=== PATIENT | male | born 1940 | race Caucasian/White ===

== ENCOUNTER → 2016-06-19 | Outpatient (CLI) | payer OTHER ==
[~2016-06-19] MED LIST: ALBU18002 INH; ALLO100T PO; AMLO2.5T PO; ASPI-435 PO; CETI10TA84 PO; FURO-85 PO; GABA-113 PO; LINA72CA PO; LISI-725 PO; PRT/20 PO; PTDOPS OP; SPRIN/30 INH; SYMIN160 INH; TRAM-10 PO; [UNRECOGNIZED DRUG - CODE] PO
[2016-06-19 13:22] LABS: BLOOD UREA NITROGEN 23 mg/dl (7-18); BUN/CREATININE RATIO 14.5 (10-20); CALCIUM 9.1 mg/dl (8.5-10.1); CARBON DIOXIDE 27 mmol/L (21-32); CHLORIDE 106 mmol/L (98-107); GLUCOSE 84 mg/dl (70-99); POTASSIUM 4.3 mmol/L (3.5-5.1); SODIUM 142 mmol/L (136-145); URIC ACID 8.7 mg/dl (2.6-7.2)
== END | disposition home or self-care (01) ==
LOC: C.LABMFLN 11:48
PROVIDERS: ATTEND Family Medicine
DX: I12.9 Hypertensive chronic kidney disease with stage 1 through stage 4 chronic kidney disease, or unspecified chronic kidney disease (principal); I50.9 Heart failure, unspecified; N18.3 Chronic kidney disease, stage 3 (moderate)

== ENCOUNTER → 2016-11-09 | Outpatient (CLI) | payer OTHER ==
[2016-11-09 13:25] LABS: BLOOD UREA NITROGEN 18 mg/dl (7-18); BUN/CREATININE RATIO 10.8 (10-20); CALCIUM 9.2 mg/dl (8.5-10.1); CARBON DIOXIDE 27 mmol/L (21-32); CHLORIDE 105 mmol/L (98-107); CHOLESTEROL 258 mg/dl (0-200); GLUCOSE 89 mg/dl (70-99); POTASSIUM 4.2 mmol/L (3.5-5.1); SODIUM 140 mmol/L (136-145); TRIGLYCERIDES 279 mg/dl (0-150); VERY LOW DENSITY LIPOPROT CALC 56 mg/dl
[2016-11-09 13:27] LABS: CHOLESTEROL/HDL RATIO 5.4; HDL CHOLESTEROL 48 mg/dl; LDL CHOLESTEROL CALCULATED 154 mg/dl; URIC ACID 11.3 mg/dl (2.6-7.2)
== END | disposition home or self-care (01) ==
LOC: C.LABMFLN 11:19
PROVIDERS: ATTEND Family Medicine
DX: Z00.00 Encounter for general adult medical examination without abnormal findings (principal); Z86.39 Personal history of other endocrine, nutritional and metabolic disease; I50.9 Heart failure, unspecified

== ENCOUNTER → 2016-11-23 | Outpatient (CLI) | payer OTHER | END | disposition home or self-care (01) | LOC: C.LABMFLN 14:13 | PROVIDERS: ATTEND Family Medicine | DX: E79.0 Hyperuricemia without signs of inflammatory arthritis and tophaceous disease (principal) ==

== ENCOUNTER → 2017-01-22 | Outpatient (CLI) | payer OTHER ==
--- NOTE | 2017-01-22 12:25 | DIAGNOSTIC IMAGING REPORT ---
L-SPINE MIN 4 VIEWS ROUTINE CLINICAL HISTORY: Low back pain. Lumbar canal stenosis. COMPARISON: None FINDINGS: There is straightening of the normal lumbar lordosis. No fracture or suspicious lesion is identified by radiography. Note is made of moderate to severe multilevel disc space narrowing ossified ptosis within the mid to lower lumbar spine. IMPRESSION: 1. No acute lumbar spine fracture or subluxation. 2. 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 Electronically signed by: Brian Bowen M.D. 01/22/2017 12:24 PM Dictated Date/Time: 01/22/2017 12:23 PM
[2017-01-22 12:52] LABS: BLOOD UREA NITROGEN 18 mg/dl (7-18); BUN/CREATININE RATIO 10.6 (10-20); CALCIUM 9.1 mg/dl (8.5-10.1); CARBON DIOXIDE 30 mmol/L (21-32); CHLORIDE 107 mmol/L (98-107); GLUCOSE 81 mg/dl (70-99); POTASSIUM 4.4 mmol/L (3.5-5.1); SODIUM 140 mmol/L (136-145)
[2017-01-22 12:53] LABS: PHOSPHORUS 2.8 mg/dl (2.5-4.9)
== END | disposition home or self-care (01) ==
LOC: C.RAD1850 11:22
PROVIDERS: ATTEND Nurse Practitioner Family
DX: N18.3 Chronic kidney disease, stage 3 (moderate) (principal); E79.0 Hyperuricemia without signs of inflammatory arthritis and tophaceous disease; M48.06 Spinal stenosis, lumbar region; M51.26 Other intervertebral disc displacement, lumbar region

== ENCOUNTER → 2017-02-26 | Outpatient (CLI) | payer OTHER ==
--- NOTE | 2017-02-26 11:56 | DIAGNOSTIC IMAGING REPORT ---
MRI OF THE LUMBAR SPINE WITHOUT IV CONTRAST CLINICAL HISTORY: Chronic low back pain with bilateral lower extremity radiculopathy. COMPARISON STUDY: Radiographs of the lumbar spine dated 01/22/2017. Abdominal CT dated 10/20/2014. TECHNIQUE: MRI of the lumbar spine is performed utilizing various T1 and T2-weighted sequences in the axial and sagittal planes. IV contrast was not administered for this examination. FINDINGS: Lumbar spine: Marrow signal intensity is heterogeneous. Vertebral body height and alignment are maintained throughout the lumbar spine. There is straightening of the lumbar lordosis. Anterior osteophytes are seen throughout. The transverse and spinous processes appear intact. No destructive bony lesion is seen. There is no spondylolysis. Advanced degenerative endplate sclerosis is present at L4-L5. Mild chronic degenerative endplate change is seen at the remaining lumbar levels. Minimal endplate edema is noted at L4-L5 and L5-S1. Intervertebral discs: Advanced degenerative disc desiccation and loss of height is seen at all lumbar levels. Spinal cord: The partially imaged spinal cord is normal in morphology and signal intensity. The conus medullaris terminates at the level of L1. The nerve roots of the cauda equina are normal in morphology. L1-L2: There is broad-based posterior disc bulge. This causes mild acquired compromise of the central canal. The minimum AP diameter measures 9 mm. There is bilateral subarticular stenosis. This likely impinges on the exiting right L1 nerve root. This also abuts the transiting right-sided nerve roots. L2-L3: There is posterior disc bulge with annular fissure. There is no significant acquired compromise of the central canal at this level. There is bilateral subarticular stenosis. The neural foramina are patent. L3-L4: There is broad-based posterior disc bulge with annular fissure. In conjunction with hypertrophy of the ligamentum flavum this causes moderate central canal stenosis with a minimum AP diameter of 5.5 mm. There is bilateral subarticular stenosis. This may impinge on the exiting right L3 nerve root. This also abuts the transiting nerve roots bilaterally. Facet arthropathy is of no consequence. The neural foramina are patent. L4-L5: There is a posterior disc osteophyte complex. In conjunction with hypertrophy of the ligamentum flavum there is moderate acquired compromise of the central canal at this level with a minimum AP diameter of 7 mm. There is bilateral subarticular stenosis with probable impingement on the exiting bilateral L4 nerve roots. Facet arthropathy causes mild bilateral neural foraminal stenosis. The disc bulge also likely abuts the transiting nerve roots. L5-S1: There is a small posterior disc bulge. There is no significant acquired compromise of the central canal at this level. There is bilateral subarticular stenosis with possible impingement on the exiting bilateral L5 nerve roots. Facet arthropathy causes mild right greater than left neural foraminal stenosis. Sacrum: The visualized sacrum is normal in morphology and signal intensity. Soft tissues: There is mild fatty atrophy of the paraspinous musculature. There is ectasia of the abdominal aorta. IMPRESSION: 1. Moderate to advanced multilevel lumbosacral spondylosis with multilevel acquired compromise of the central canal as detailed above. See discussion for detailed level by level analysis. 2. No acute bony abnormality is seen. 3. Advanced degenerative disc disease with multilevel degenerative endplate change. This is greatest at L4-L5. See above. Dictated: 02/26/2017 10:35 AM Transcribed: 02/26/2017 11:56 AM Tay Electronically signed by: Daniel Sanchez M.D. 02/26/2017 12:19 PM Dictated Date/Time: 02/26/2017 10:35 AM
== END | disposition home or self-care (01) ==
LOC: C.MRIBC 09:32
PROVIDERS: ATTEND Physician Assistant Medical
DX: M47.27 Other spondylosis with radiculopathy, lumbosacral region (principal); M51.36 Other intervertebral disc degeneration, lumbar region

== ENCOUNTER → 2017-05-11 | Outpatient (CLI) | payer OTHER ==
[~2017-05-11] MED LIST changes: +ALLO300T2 PO; +DOXA8TAB6 PO; -GABA-113 PO; +HYDR-3124 PO; +LISI40TA PO; -[UNRECOGNIZED DRUG - CODE] PO
== END | disposition home or self-care (01) ==
LOC: C.LABMFLN 08:49
PROVIDERS: ATTEND Physician Assistant
DX: E78.5 Hyperlipidemia, unspecified (principal)

== ENCOUNTER 2017-07-20 12:25 | Observation (INO) | payer OTHER ==
[~2017-07-20] VITALS: Ht 182.9 cm; Wt 95.2 kg
[~2017-07-20 12:25] MED LIST changes: -ALLO300T2 PO; -AMLO2.5T PO; -HYDR-3124 PO; -LISI40TA PO
[2017-07-20] MEDS ORDERED: NITROGLYCERIN 2% OINTMENT 30GM TUBE EXT ONE (12:45)
--- NOTE | 2017-07-20 12:50 | EMERGENCY ROOM VISIT NOTE ---
History Report prepared by Elizabeth: Dagoberto Zhang Under the Supervision of: Dr. Daniel Mckeon M.D. First contact with patient: 12:36 Chief Complaint: CARDIAC ASSESSMENT Stated Complaint: FEELS LIKE GOING TO PASS OUT, LOW BP History of Present Illness The patient is a 77 year old male who presents to the Emergency Room with complaints of worsening chest fullness that started yesterday. The patient states that there is no chest pain. He says that the fullness was very mild yesterday afternoon, but worsened last night, and has stayed constant since then. The patient states that it feels like there is water around his heart. He rates his fullness as "minimal" however. He notes that he has been a little short of breath. The patient says that he has had some left jaw pain, but denies any arm pain. He also denies any nausea or sweating. The patient adds that he has had a heart attack in the past, and is taking Aspirin daily. He notes no stenting or surgical history for his heart. He adds that he runs on the treadmill everyday, but did not today. He adds that he has a history of a partial lung resection due to an abscess. Source of History: patient Onset: Yesterday Position: chest Symptom Intensity: minimal, no pain Quality: other (fullness) Timing: worsening Associated Symptoms: + SOB, No diaphoresis, No nausea Note: Associated symptoms: Left jaw pain. Denies arm pain. Review of Systems See HPI for pertinent positives & negatives. A total of 10 systems reviewed and were otherwise negative. Past Medical & Surgical Medical Problems: (1) Back pain (2) COPD (chronic obstructive pulmonary disease) (3) Heart attack (4) HLD (hyperlipidemia) (5) HTN (hypertension) Family History Cancer Diabetes mellitus FH: heart disease Social History Smoking Status: Former Smoker Marital Status: single Housing Status: lives with family Occupation Status: employed Current/Historical Medications Scheduled Allopurinol (Zyloprim), 300 MG PO DAILY Amlodipine (Norvasc), 2.5 MG PO DAILY Aspirin (Aspirin 81), 81 MG PO DAILY Budesonide/Formoterol Fumarate (Symbicort 160/4.5 Inhaler ), 2 PUFFS INH BID Cetirizine (Zyrtec), 10 MG PO DAILY Doxazosin Mesylate (Doxazosin), 8 MG PO HS Hydroxyzine Hcl (Atarax), 25 MG PO HS Lisinopril (Zestril), 40 MG PO DAILY Olopatadine Hydrochloride (Pataday), 1 DROPS OP DAILY Pantoprazole (Protonix), 20 MG PO DAILY Tiotropium [place] (Spiriva Handihaler), 1 CAP INH DAILY Scheduled PRN Albuterol Sulfate (Proair Respiclick), 2 PUFF INH Q4 PRN for Shortness of Breath Tramadol (Ultram), 100 MG PO TID PRN for Pain Allergies Coded Allergies: No Known Allergies (Unverified , 07/20/17) Physical Exam Vital Signs Date Time Temp Pulse Resp B/P (MAP) Pulse Ox O2 Delivery O2 Flow Rate FiO2 07/20/17 14:10 88 20 151/107 99 Room Air 07/20/17 13:22 75 20 155/85 07/20/17 12:48 97 Room Air 07/20/17 12:46 81 07/20/17 12:32 36.5 79 18 175/71 97 Room Air Physical Exam GENERAL: Patient is in no acute distress. HEENT: No acute trauma, normocephalic atraumatic, mucous membranes moist, no nasal congestion, no scleral icterus. NECK: No stridor, no adenopathy, no meningismus, trachea is midline. LUNGS: Clear to auscultation bilaterally, no wheeze, no rhonchi, breath sounds equal. HEART: Without murmurs gallops or rubs, regular rate and rhythm. ABDOMEN: Soft, nontender, bowel sounds positive, no hernias, no peritonitis. EXTREMITIES: No cyanosis or edema, full range of motion of all the joints without pain or difficulty, no signs for acute trauma. NEUROLOGIC: Oriented x 3, no acute motor or sensory deficits, no focal weakness. SKIN: No rash, no jaundice, no diaphoresis. Medical Decision & Procedures ER Provider Diagnostic Interpretation: X-ray results as stated below per interpretation by me and the radiologist: CHEST ONE VIEW PORTABLE HISTORY: Atypical CHEST PAIN COMPARISON: None. FINDINGS: Emphysema. Mild interstitial thickening at the lung bases is likely due to vascular crowding. No focal lung consolidations to suggest pneumonia. No evidence for pulmonary edema. The heart is normal in size. Suture material within the right lung apex. Expansion of the right fifth intercostal space. Old, healed bilateral rib fractures. IMPRESSION: No acute process within the chest. Emphysema. Electronically signed by: Michael Toledo M.D. 07/20/2017 1:21 PM Dictated Date/Time: 07/20/2017 1:19 PM Laboratory Results 07/20/17 13:00 07/20/17 13:00 Test 07/20/17 13:00 Red Blood Count 5.04 M/uL (4.7-6.1) Mean Corpuscular Volume 92.9 fL (80-100) Mean Corpuscular Hemoglobin 31.5 pg (25-34) Mean Corpuscular Hemoglobin Concent 34.0 g/dl (32-36) RDW Standard Deviation 50.3 fL (36.4-46.3) RDW Coefficient of Variation 15.0 % (11.5-14.5) Mean Platelet Volume 10.6 fL (7.4-10.4) Prothrombin Time 10.7 SECONDS (9.0-12.0) Prothromb Time International Ratio 1.0 (0.9-1.1) Activated Partial Thromboplast Time 26.4 SECONDS (21.0-31.0) Partial Thromboplastin Ratio 1.0 Anion Gap 7.0 mmol/L (3-11) Est Creatinine Clear Calc Drug Dose 48.5 ml/min Estimated GFR () 48.5 Estimated GFR (Non- 41.8 BUN/Creatinine Ratio 12.3 (10-20) Calcium Level 8.6 mg/dl (8.5-10.1) Total Bilirubin 0.6 mg/dl (0.2-1) Aspartate Amino Transf (AST/SGOT) 15 U/L (15-37) Alanine Aminotransferase (ALT/SGPT) 25 U/L (12-78) Alkaline Phosphatase 88 U/L (45-117) Troponin I 0.027 ng/ml (0-0.045) Total Protein 6.8 gm/dl (6.4-8.2) Albumin 3.7 gm/dl (3.4-5.0) Globulin 3.1 gm/dl (2.5-4.0) Albumin/Globulin Ratio 1.2 (0.9-2) Laboratory results reviewed by me. Medications Administered Medications (Trade) Dose Ordered Sig/Mariam Route Start Time Stop Time Status Last Admin Dose Admin Nitroglycerin (Nitroglycerin 2% Oint) 0.5 inch NOW ONCE EXT 07/20/17 12:45 07/20/17 12:47 DC 07/20/17 13:22 0.5 INCH ECG Per My Interpretation Indication: chest pain Rate (beats per minute): 82 Rhythm: sinus rhythm (with some sinus arrhythmia) Findings: RBBB, other (nonspecific ST change, no ST elevation) ED Course 1242: The patient was evaluated in room B6. A complete history and physical exam was performed. 1245: Nitroglycerin 2% Oint 0.5 inch EXT. 1355: Upon reexamination the patient is feeling a lot better with the Nitro. The patient's symptoms are gone. I discussed results and treatment plan with the patient. He verbalizes agreement and understanding. The patient will be evaluated for further management. 1427: Discussed the patient's case with Dr. Britton FAIRBANKS field crop harvest worker. The patient will be evaluated for further management. Medical Decision Differential diagnosis includes but is not limited to CT, angina, cardiac ischemia, anemia, electrolyte imbalance, aortic dissection, PE. There is no leukocytosis or concerning anemia. No significant electrolyte abnormality or kidney failure. No coagulopathy. EKG shows a sinus rhythm with a right bundle branch block, no acute ischemia. Cardiac enzyme testing 1 is not consistent with acute cardiac injury. Chest film does not show pneumonia, mediastinal widening or CHF. The patient presents with substernal chest pain. He has had a previous CT. He received nitroglycerin paste and his symptoms have resolved. Given the pain described, given the radiation of discomfort to the left jaw, given the relief with nitroglycerin, a hospital stay was felt warranted. I spoke to the patient and case management. The on-call hospitalist was consulted. Medication Reconcilliation Current Medication List: was personally reviewed by me Blood Pressure Screening Patient's blood pressure: Elevated blood pressure Referred to hospitalist. Consults Time Called: 1421 Consulting Physician: Dr. Britton FAIRBANKS field crop harvest worker Returned Call: [phone] Discussed the patient's case with Dr. Britton FAIRBANKS field crop harvest worker. The patient will be evaluated for further management. Impression Primary Impression: Precordial chest pain Scribe Attestation The scribe's documentation has been prepared under my direction and personally reviewed by me in its entirety. I confirm that the note above accurately reflects all work, treatment, procedures, and medical decision making performed by me. Departure Information Dispostion Being Evaluated By Hospitalist Referrals Emanuel Castellon III, CRNP (PCP) Patient Instructions My [facility]
[2017-07-20 13:11] LABS: HEMATOCRIT 46.8 % (42-52); HEMOGLOBIN 15.9 g/dL (14.0-18.0); MEAN CELL VOLUME 92.9 fL (80-100); MEAN CORPUSCULAR HEMOGLOBIN 31.5 pg (25-34); MEAN PLATELET VOLUME 10.6 fL (7.4-10.4); PLATELET COUNT 224 K/uL (130-400); RED CELL DISTRIBUTION WIDTH SD 50.3 fL (36.4-46.3); WHITE BLOOD COUNT 9.52 K/uL (4.8-10.8)
--- NOTE | 2017-07-20 13:22 | DIAGNOSTIC IMAGING REPORT ---
CHEST ONE VIEW PORTABLE HISTORY: Atypical CHEST PAIN COMPARISON: None. FINDINGS: Emphysema. Mild interstitial thickening at the lung bases is likely due to vascular crowding. No focal lung consolidations to suggest pneumonia. No evidence for pulmonary edema. The heart is normal in size. Suture material within the right lung apex. Expansion of the right fifth intercostal space. Old, healed bilateral rib fractures. IMPRESSION: No acute process within the chest. Emphysema. Electronically signed by: Michael Toledo M.D. 07/20/2017 1:21 PM Dictated Date/Time: 07/20/2017 1:19 PM
[2017-07-20 13:23] LABS: PTT PATIENT 26.4 SECONDS (21.0-31.0)
[2017-07-20 13:26] LABS: ALBUMIN 3.7 gm/dl (3.4-5.0); CALCIUM 8.6 mg/dl (8.5-10.1); CREATININE 1.59 mg/dl (0.60-1.40); POTASSIUM 4.7 mmol/L (3.5-5.1)
[2017-07-20 13:31] LABS: TOTAL PROTEIN 6.8 gm/dl (6.4-8.2)
[2017-07-20] MEDS ORDERED: LISI40TA PO (14:34)
[2017-07-20] MEDS ORDERED: ALLO300T2 PO (14:34)
[2017-07-20] MEDS ORDERED: AMLO2.5T PO (14:34)
[2017-07-20] MEDS ORDERED: HYDR-3124 PO (14:34)
[2017-07-20] MEDS ORDERED: MAGNESIUM HYDROXIDE SUSP 30 ML UDC PO PRN (15:30)
[2017-07-20] MEDS ORDERED: POLYETHYLENE (MIRALAX) 17 GM PACK PO PRN (15:30)
[2017-07-20] MEDS ORDERED: MoRPHine SULFATE 2 MG/ML CARP IV PRN (15:30)
[2017-07-20] MEDS ORDERED: TRAMADOL HCL 50 MG TAB PO PRN (15:30)
[2017-07-20] MEDS ORDERED: HydrALAZINE HCL 20 MG/ML VIAL IV. PRN (15:30)
[2017-07-20] MEDS ORDERED: ALBUTEROL HFA 8 GM INHALER INH PRN (15:30)
[2017-07-20] MEDS ORDERED: ALUMINUM/MAGNESIUM/SIMETH (MAALOX MAX) 30 ML UDC PO PRN (15:30)
[2017-07-20] MEDS ORDERED: ACETAMINOPHEN 325 MG TAB PO PRN (15:30)
[2017-07-20] MEDS ORDERED: ONDANSETRON INJ 2 MG/ML 2 ML VIAL IV PRN (15:30)
--- NOTE | 2017-07-20 15:44 | History and Physical ---
History & Physical Date & Time of Service: Jul 20, 2017 at 15:27 Chief Complaint: Feels Like Going To Pass Out, Low Bp Primary Care Physician: Raul Oscar M.D. History of Present Illness Source: patient, clinic records, hospital records Patient is a pleasant 77 y/o male, with PMHx of CAD s/p MS in 2008, ischemic cardiomyopathy w/ EF of 45-50%, systolic CHF, paroxysmal a.fib, HLD, HTN, COPD, CKD stage III, gout, OA, and GERD, who presented to the ED because of centralized chest pressure. Pain occurred this AM while at rest. It did not radiate. He notes mild associated shortness of breath. He did not take anything to alleviate pain. However, in ED he was given Nitro ointment with resolution is discomfort. He has been taking all of his medications as prescribed. He follows w/ Dr. Flores for cardiology. He normally walks on the treadmill daily- he did yesterday with no issues, he did not today due to chest discomfort. Patient denies any fever, chills, sweats, lightheadedness, dizziness, vision changes, palpitations, edema, wheezing, cough, abdominal pain, nausea, vomiting , diarrhea, urinary symptoms, melena, numbness/tingling, weakness, muscle/joint pain, anxiety/depression, active bleeding, or new skin discoloration/changes. Past Medical/Surgical History CAD s/p MS in 2008- INTOLERANT TO B-BLOCKERS ischemic cardiomyopathy w/ EF of 45-50% systolic CHF paroxysmal a.fib- REFUSES ANTICOAGULATION HLD- INTOLERANT TO STATINS HTN COPD CKD stage III gout OA GERD s/p R partial lobectomy due to abscess Family History Cancer Diabetes mellitus FH: heart disease Social History Smoking Status: Former Smoker Smokeless Tobacco Use: Yes Marital Status: single Housing status: lives with significant other Occupational Status: employed Allergies Coded Allergies: No Known Allergies (Unverified , 07/20/17) Home Medications Scheduled Allopurinol (Zyloprim), 300 MG PO DAILY Amlodipine (Norvasc), 2.5 MG PO DAILY Aspirin (Aspirin 81), 81 MG PO DAILY Budesonide/Formoterol Fumarate (Symbicort 160/4.5 Inhaler ), 2 PUFFS INH BID Cetirizine (Zyrtec), 10 MG PO DAILY Doxazosin Mesylate (Doxazosin), 8 MG PO HS Hydroxyzine Hcl (Atarax), 25 MG PO HS Lisinopril (Zestril), 40 MG PO DAILY Olopatadine Hydrochloride (Pataday), 1 DROPS OP DAILY Pantoprazole (Protonix), 20 MG PO DAILY Tiotropium [place] (Spiriva Handihaler), 1 CAP INH DAILY Scheduled PRN Albuterol Sulfate (Proair Respiclick), 2 PUFF INH Q4 PRN for Shortness of Breath Tramadol (Ultram), 100 MG PO TID PRN for Pain Physical Exam Vital Signs Date Time Temp Pulse Resp B/P (MAP) Pulse Ox O2 Delivery O2 Flow Rate FiO2 07/20/17 14:10 88 20 151/107 99 Room Air 07/20/17 13:22 75 20 155/85 07/20/17 12:48 97 Room Air 07/20/17 12:46 81 07/20/17 12:32 36.5 79 18 175/71 97 Room Air General Appearance: no apparent distress Head: normocephalic, atraumatic Eyes: normal inspection, PERRL ENT: hearing grossly normal Neck: supple, no JVD Respiratory/Chest: lungs clear, no respiratory distress, no accessory muscle use Cardiovascular: regular rate, rhythm Abdomen/GI: normal bowel sounds, non tender, soft Back: normal inspection, + pertinent finding (healed scar to R side mid back ) Extremities/Musculoskelatal: no calf tenderness, no pedal edema Neurologic/Psych: alert, normal mood/affect, oriented x 3 Skin: normal color, warm/dry, no rash Diagnostics Laboratory Results Results Past 24 Hours Test 07/20/17 13:00 Range/Units White Blood Count 9.52 4.8-10.8 K/uL Red Blood Count 5.04 4.7-6.1 M/uL Hemoglobin 15.9 14.0-18.0 g/dL Hematocrit 46.8 42-52 % Mean Corpuscular Volume 92.9 80-100 fL Mean Corpuscular Hemoglobin 31.5 25-34 pg Mean Corpuscular Hemoglobin Concent 34.0 32-36 g/dl RDW Standard Deviation 50.3 36.4-46.3 fL RDW Coefficient of Variation 15.0 11.5-14.5 % Platelet Count 224 130-400 K/uL Mean Platelet Volume 10.6 7.4-10.4 fL Prothrombin Time 10.7 9.0-12.0 SECONDS Prothromb Time International Ratio 1.0 0.9-1.1 Activated Partial Thromboplast Time 26.4 21.0-31.0 SECONDS Partial Thromboplastin Ratio 1.0 Sodium Level 138 136-145 mmol/L Potassium Level 4.7 3.5-5.1 mmol/L Chloride Level 106 98-107 mmol/L Carbon Dioxide Level 26 21-32 mmol/L Anion Gap 7.0 3-11 mmol/L Blood Urea Nitrogen 20 7-18 mg/dl Creatinine 1.59 0.60-1.40 mg/dl Est Creatinine Clear Calc Drug Dose 48.5 ml/min Estimated GFR () 48.5 Estimated GFR (Non- 41.8 BUN/Creatinine Ratio 12.3 10-20 Random Glucose 100 70-99 mg/dl Calcium Level 8.6 8.5-10.1 mg/dl Total Bilirubin 0.6 0.2-1 mg/dl Aspartate Amino Transf (AST/SGOT) 15 15-37 U/L Alanine Aminotransferase (ALT/SGPT) 25 12-78 U/L Alkaline Phosphatase 88 45-117 U/L Troponin I 0.027 0-0.045 ng/ml Total Protein 6.8 6.4-8.2 gm/dl Albumin 3.7 3.4-5.0 gm/dl Globulin 3.1 2.5-4.0 gm/dl Albumin/Globulin Ratio 1.2 0.9-2 Diagnostic Radiology CHEST ONE VIEW PORTABLE HISTORY: Atypical CHEST PAIN COMPARISON: None. FINDINGS: Emphysema. Mild interstitial thickening at the lung bases is likely due to vascular crowding. No focal lung consolidations to suggest pneumonia. No evidence for pulmonary edema. The heart is normal in size. Suture material within the right lung apex. Expansion of the right fifth intercostal space. Old, healed bilateral rib fractures. IMPRESSION: No acute process within the chest. Emphysema. Electronically signed by: Michael Toledo M.D. 07/20/2017 1:21 PM Dictated Date/Time: 07/20/2017 1:19 PM The status of this report is Signed. Draft = Not yet reviewed or approved by Radiologist. Signed = Reviewed and approved by Radiologist. EKG SHOLA JAVIER ID:[id number] 20-JUL-2017 12:37:39 [facility] Sinus rhythm with marked sinus arrhythmia Right bundle branch block Inferior infarct , age undetermined Abnormal ECG No previous ECGs available 25mm/s 10mm/mV 150Hz 8.0 SP2 12SL 241 ARSLAN: 13 Referred by: Unconfirmed Vent. 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 Chest pain- ACS r/o: - Admit to tele for cardiac monitoring - Trend cardiac enzymes - EKG QAM and PRN for chest pain - O2 protocol - IV Morphine PRN for chest pain; Nitro patch - Check hgbA1c and lipid panel - Will make NPO after midnight- cardiology can decide if stress ECHO needed and whether inpatient vs outpatient given tomorrow is Sunday - Consult cardiology, appreciate recommendations CAD s/p MS in 2008, ischemic cardiomyopathy w/ EF of 45-50%, systolic CHF, paroxysmal a.fib, HLD, HTN- follows w/ Dr. 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 His pain resolved with NTG. OE AAO x 3 S1,2 R CTAB NT, ND No CCE P: R/O MS SS for DM CKD is stable No evidence of COPD exacerbation - cont inhalers Resuscitation Status VTE Prophylaxis Will order VTE Prophylaxis: Yes
[2017-07-20] MEDS ORDERED: IV FLUIDS COMPLETED PRN (16:00)
[2017-07-20 16:45] VITALS: BP 128/76; PULSE 81; TEMP 36.6; O2SAT 96; Ht 182.9 cm; Wt 95.2 kg
[2017-07-20] MEDS: NITROGLYCERIN 2% OINTMENT 30GM TUBE EXT SCH ×2 (18:00→23:59)
[2017-07-20 19:08] VITALS: BP 139/76; PULSE 80; TEMP 36.6; O2SAT 94
--- NOTE | 2017-07-20 19:20 | CARDIOLOGY CONSULTATION REPORT ---
DATE OF CONSULTATION: 07/20/2017 REASON FOR CONSULTATION: 1. Chest fullness/chest burning over the past 12-24 hours. 2. CAD status post inferior MRI 2008. 3. Ischemic cardiomyopathy without overt evidence of CHF at the present time. HISTORY OF PRESENT ILLNESS: Mr. Robb is a very pleasant 77-year-old obese white male with a history of CAD status post inferior NH 2008, ischemic cardiomyopathy with an LVEF of 45% to 50%, chronic systolic CHF, paroxysmal atrial fibrillation (refuses Coumadin), hypertension, dyslipidemia, COPD, stage 3 chronic kidney disease, GERD, and a history of a right partial lobectomy secondary to abscess who was admitted acutely today after presenting with chest fullness/burning which has been present since yesterday, and initially seemed to come and go, but then lasted for several hours. The patient has noticed a mild increase in his exertional dyspnea lately, and occasionally feels very lightheaded like he is going to pass out. Therefore he came into the Emergency Room for further evaluation. The patient finally had relief from his discomfort after applying nitro paste topically. He is currently pain free. The patient states that his heart failure has been well controlled, and his body weight is actually down at the present time. He maintains a very low sodium diet and weighs himself daily. He has not had any atrial fibrillation recently to his knowledge. He has been able to maintain his usual exercise program on the treadmill daily without difficulty or any limiting cardiopulmonary symptoms recently. He has not tried to use a treadmill since he began feeling poorly yesterday. The patient offers no other complaints. He has not had any associated nausea, vomiting, or diaphoresis. Please note that he did not have any symptoms with his inferior infarct in 2008. The patient has never had a cardia catheterization. In addition to refusing anticoagulation, the patient is intolerant of all statins, and he is intolerant of beta blockers. MEDICATIONS: 1. Allopurinol 300 mg daily. 2. Norvasc 2.5 mg daily. 3. Aspirin 81 mg daily. 4. Lisinopril 40 mg daily. 5. Protonix 40 mg daily. 6. Spiriva HandiHaler one puff daily. 7. Zyrtec 10 mg q. day. 8. Heparin 5000 units subcutaneous injection q. 8 hours. 9. Symbicort 160/4.5 two puffs p.o. b.i.d. 10. Vistaril 25 mg p.o. q. h.s. 11. Cardura 8 mg q. h.s. 12. Nitro paste 2% one inch applied to chest wall q. 6 hours. 13. Tylenol 650 mg p.o. q. 4 hours p.r.n. 14. Maalox max p.r.n. 15. Milk of Magnesia p.r.n. 16. Zofran p.r.n. 17. Morphine sulfate 2 mg IV q. 30 minutes p.r.n. for chest pain. 18. MiraLax 17 g daily as needed for constipation. 19. Hydralazine 10 mg IV q. 6 hours p.r.n. for systolic blood pressure greater than 170 or diastolic blood pressure greater than 100. 20. Tramadol 100 mg t.i.d. p.r.n. for pain. 21. Albuterol two puffs p.o. q. 4 hours p.r.n. for shortness of breath. ALLERGIES: 1. NKDA. 2. Intolerant of STATINS. 3. Intolerant of BETA BLOCKERS. 4. Refuses anticoagulation. PAST MEDICAL HISTORY: 1. CAD status post inferior NH 2008. 2. Ischemic cardiomyopathy with an LVEF of 45% to 50%. 3. Chronic systolic CHF. 4. Paroxysmal atrial fibrillation. 5. Dyslipidemia. 6. Hypertension. 7. COPD. 8. History of stage 3 chronic kidney disease. 9. Gout. 10. Osteoarthritis. 11. GERD. 12. History of partial right lobectomy due to abscess. SOCIAL HISTORY: The patient is single, lives with family. He is employed. He is a former smoker. FAMILY HISTORY: Significant for cancer, diabetes mellitus, and heart disease. PHYSICAL EXAMINATION: VITAL SIGNS: Temperature is 36.5 degrees celsius. Pulse 78 and regular. Respiratory rate 16 and unlabored. Blood pressure is 144/82. SpO2 is 98% on room air. GENERAL: The patient is in no acute distress. HEENT: Head is atraumatic, normocephalic. EOM's intact. Sclera anicteric. Faces symmetric. No perioral cyanosis. NECK: Without thyromegaly, adenopathy, or JVD. Jugular venous pressure is at the level of the clavicle sitting upright. Carotid upstrokes +2 bilaterally without bruits. CHEST & LUNGS: Mildly diminished breath sounds, absent breath sounds in the right base. Otherwise clear. No wheezes, rales, or rhonchi. Increased AP diameter of the chest. CVS: S1 and S2 are regular, distant, without obvious murmur, gallop, or rub. PMI is nonpalpable. No lifts, heaves or thrills. No abdominal aortic or renal bruits. ABDOMEN: Bowel sounds are present. No masses, organomegaly, or tenderness. EXTREMITIES: With trace pretibial edema. NEUROLOGIC: The patient is awake, alert and oriented. Pleasant and cooperative. Answers questions appropriately. Speech is clear. Normal movement in all four extremities. MUSCULOSKELETAL: Enlarged bursa sac on the right olecranon process. It is nontender. EKG on admission shows normal sinus rhythm with occasional premature atrial contractions, right bundle branch block pattern. Inferior infarct, age indeterminate is present. No acute changes are noted. LABORATORIES: White blood cell count is 9.52, hemoglobin 15.9 g/dL, hematocrit 46.8%, platelet count 224,000. Sodium is 138 mmol/L, potassium 4.7 mmol/L, BUN mg/dL, creatinine 1.59 mg/dL, random glucose 1 mg/dL. Initial troponin I is 0.027 ng/mL. Chest x-ray on admission shows no acute processes in the chest. He does have evidence of emphysema. ASSESSMENT: 1. Chest fullness/burning over the past 12-24 hours with initial troponin I being negative. 2. CAD status post inferior NH 2008. 3. Ischemic cardiomyopathy with LVEF of 45-50%. 4. Chronic systolic CHF - compensated. 5. Hypertension, not adequately controlled. 6. Dyslipidemia, refuses statins. 7. Paroxysmal atrial fibrillation - refuses anticoagulation. 8. Intolerant of beta blockers. 9. COPD. 10. Diagnoses mentioned above. PLAN: 1. Discussed with Dr. Flores who also met with, interviewed, and examined the patient. 2. Continue topical nitrates. 3. Continue subcutaneous heparin 5000 units q. 8 hours. If troponin levels become positive, would convert to a heparin drip. 4. Continue amlodipine 2.5 mg daily. 5. Continue lisinopril 40 mg daily. 6. Continue doxazosin 8 mg daily at bedtime. 7. Closely monitor daily I&O's, body weights. 8. Continue aspirin 81 mg daily. 9. Continue usual inhalers. 10. Trend cardiac enzymes, serial EKG's. 11. Pending the outcome of his cardiac enzymes, would consider a stress echo cardiogram versus nuclear stress test if they remain negative. If his cardiac enzymes become positive, would strongly consider cardiac catheterization with close monitoring of renal function. 12. Patient will be followed by [facility] through the weekend. RENE
[2017-07-20] MEDS: BUDESONIDE/FORMOTEROL FUMARATE 160/4.5 60 PUFFS/INHALER INH SCH (20:26)
[2017-07-20] MEDS: HEPARIN SOD 5000 UNIT/0.5 ML CARP SQ SCH (20:28)
[2017-07-20] MEDS ORDERED: hydrOXYzine HCL 25 MG TAB PO SCH (21:00)
[2017-07-20] MEDS ORDERED: DOXAZosin MESYLATE TAB 4 MG TAB PO SCH (21:00)
[2017-07-20 21:37] LABS: CKMB 5.5 ng/ml (0.5-3.6)
[2017-07-20] MEDS ORDERED: HEPARIN SOD 5000 UNIT/0.5 ML CARP SQ SCH (22:00)
[2017-07-21 00:01] VITALS: BP 134/81; PULSE 86; TEMP 36.4; O2SAT 92
[2017-07-21 03:57] VITALS: BP 134/68; PULSE 79; TEMP 36.7; O2SAT 95
[2017-07-21 05:28] LABS: HEMATOCRIT 42.9 % (42-52); HEMOGLOBIN 14.3 g/dL (14.0-18.0); MEAN CELL VOLUME 92.9 fL (80-100); MEAN CORPUSCULAR HGB CONC 33.3 g/dl (32-36); MEAN PLATELET VOLUME 10.7 fL (7.4-10.4); PLATELET COUNT 240 K/uL (130-400); RED CELL DISTRIBUTION WIDTH CV 14.9 % (11.5-14.5); RED CELL DISTRIBUTION WIDTH SD 50.3 fL (36.4-46.3); WHITE BLOOD COUNT 9.45 K/uL (4.8-10.8)
[2017-07-21 05:52] LABS: BLOOD UREA NITROGEN 24 mg/dl (7-18); CALCIUM 8.4 mg/dl (8.5-10.1); CARBON DIOXIDE 26 mmol/L (21-32); CREATININE 1.62 mg/dl (0.60-1.40); GLUCOSE 96 mg/dl (70-99); POTASSIUM 4.4 mmol/L (3.5-5.1); SODIUM 139 mmol/L (136-145)
[2017-07-21 05:57] LABS: CHOLESTEROL 191 mg/dl (0-200); CKMB 3.9 ng/ml (0.5-3.6); LDL CHOLESTEROL CALCULATED 95 mg/dl
[2017-07-21] MEDS: HEPARIN SOD 5000 UNIT/0.5 ML CARP SQ SCH ×2 (06:01→13:37)
[2017-07-21] MEDS: NITROGLYCERIN 2% OINTMENT 30GM TUBE EXT SCH ×2 (06:01→11:41)
[2017-07-21 07:44] VITALS: BP 124/83; PULSE 84; TEMP 36.3; O2SAT 92
[2017-07-21 08:06] LABS: HEMOGLOBIN A1C 5.4 % (4.5-5.6)
[2017-07-21] MEDS: BUDESONIDE/FORMOTEROL FUMARATE 160/4.5 60 PUFFS/INHALER INH SCH (08:27)
[2017-07-21] MEDS ORDERED: ALLOPURINOL 300 MG TAB PO SCH (09:00)
[2017-07-21] MEDS ORDERED: AMLODIPINE BESYLATE 5 MG TAB PO SCH (09:00)
[2017-07-21] MEDS ORDERED: PANTOprazole SOD 40 MG TAB PO SCH (09:00)
[2017-07-21] MEDS ORDERED: TIOTROPIUM BROMIDE 5 PUFF/90 MCG INH INH SCH (09:00)
[2017-07-21] MEDS ORDERED: ASPIRIN 81 MG ECTAB PO SCH (09:00)
[2017-07-21] MEDS ORDERED: LISINOPRIL 40 MG TAB PO SCH (09:00)
[2017-07-21] MEDS ORDERED: CETIRIZINE HCL 10 MG TAB PO SCH (09:00)
[2017-07-21 11:24] VITALS: BP 121/74; PULSE 81; TEMP 36.6; O2SAT 94
--- NOTE | 2017-07-21 17:06 | ECHOCARDIOGRAM REPORT ---
*NOTICE TO RECEIVING DEMOCRAT AGENCY This information is strictly Confidential and protected under [place] law. [place] law prohibits you from making any further disclosure of this information unless further disclosure is expressly permitted by the written consent of the person to whom it pertains or is authorized by law. A general authorization for the release of medical or other information is not sufficient for this purpose. Hospital accepts no responsibility if the information is made available to any other person, INCLUDING THE PATIENT. Interpretation Summary * Name: SHOLA JAVIER Study Date: 07/21/2017 03:17 PM BP: 121/74 mmHg * Patient Location: [facility] HR: 81 * : 1940 (M/d/yyyy) Gender: Male Height: 72 in * Age: 77 yrs Ethnicity: CA Weight: 210 lb * Ordering Physician: Chaz * Performed By: Arvin Griffith RCS * * Reason For Study: Chest Pain * BSA: 2.2 m2 * -- Conclusions -- * Technically difficult study despite use of Definity ultrasound contrast. * 1. Normal LV size, borderline concentric LVH. * 2. Moderate to severe LV dysfunction. LVEF 30-35%. Regional wall motion abnormalities as described above. * 3. Normal RV size and function. * 4. Mild mitral regurgitation. * 5. Normal estimated CVP. * 6. No prior studies for comparison. Procedure Details * A complete two-dimensional transthoracic echocardiogram was performed (2D, M-mode, Doppler and color flow Doppler). * The study was technically difficult. * A contrast injection of Definity was performed to improve assessment of LV function. * Contrast was injected into an intravenous site in the left arm. * One vial of Definity ultrasound contrast was diluted in normal saline to a total volume of 10 ml. A total of '1' ml of solution was administered during imaging. * Lot # [id number] of Definity utilized for procedure. * Expiration date . * The attending nurse who injected the contrast agent was Wendi Avendano RN. Left Ventricle * The left ventricle is grossly normal size. * There is mild concentric left ventricular hypertrophy. * Ejection Fraction = 30-35%. * Left ventricular systolic function is moderate to severely reduced. * Thinned, akinetic base to mid inferior and inferolateral alves. Severely hypokinetic base to mid lateral wall. Right Ventricle * The right ventricle is grossly normal size. * The right ventricular systolic function is normal as assessed by tricuspid annular plane systolic excursion (TAPSE) (normal >1.5 cm). Atria * The left atrial size is normal. * Right atrial size is normal. * No ASD detected; PFO is not assessed. Mitral Valve * The mitral valve is grossly normal. * There is no mitral valve stenosis. * There is mild mitral regurgitation. Tricuspid Valve * The tricuspid valve is not well visualized. * Significant tricuspid regurgitation is absent. Aortic Valve * The aortic valve is not well visualized. * No hemodynamically significant valvular aortic stenosis. * There is no significant aortic regurgitation. Pulmonic Valve * The pulmonic valve is not well visualized. Pericardium/Pleural * There is no pericardial effusion. Great Vessels * Normal inferior vena cava size and collapsability with sniff indicates a normal right atrial pressure of 3 mmHg MMode 2D Measurements and Calculations IVSd 1.2 cm IVSs 1.5 cm LVIDd 5.8 cm LVIDs 4.7 cm LVPWd 1.2 cm LVPWs 1.5 cm IVS/LVPW 1.0 FS 18.6 % EDV(Teich) 166.8 ml ESV(Teich) 103.5 ml EF(Teich) 37.9 % EDV(cubed) 195.5 ml ESV(cubed) 105.3 ml EF(cubed) 46.1 % % IVS thick 23.1 % % LVPW thick 31.8 % LV mass(C)d 291.7 grams LV mass(C)dI 134.1 grams/m\S\2 LV mass(C)s 298.3 grams LV mass(C)sI 137.1 grams/m\S\2 SV(Teich) 63.3 ml SI(Teich) 29.1 ml/m\S\2 SV(cubed) 90.2 ml SI(cubed) 41.5 ml/m\S\2 Ao root diam 4.7 cm Ao root area 17.5 cm\S\2 ACS 2.2 cm LA dimension 3.7 cm LA/Ao 0.79 EDV(MOD-sp4) 319.2 ml ESV(MOD-sp4) 185.7 ml EF(MOD-sp4) 41.8 % LVAd ap2 54.8 cm\S\2 LVLd ap2 10.1 cm EDV(MOD-sp2) 229.9 ml EDV(sp2-el) 253.3 ml LVAs ap2 30.6 cm\S\2 LVLs ap2 7.9 cm ESV(MOD-sp2) 173.1 ml ESV(sp2-el) 100.4 ml EF(MOD-sp2) 24.7 % EF(sp2-el) 60.4 % SV(MOD-sp4) 133.5 ml SI(MOD-sp4) 61.4 ml/m\S\2 SV(MOD-sp2) 56.8 ml SI(MOD-sp2) 26.1 ml/m\S\2 SV(sp2-el) 152.9 ml SI(sp2-el) 70.3 ml/m\S\2 Doppler Measurements and Calculations MV E max heavenly 53.6 cm/sec MV A max heavenly 78.5 cm/sec MV E/A 0.68 MV P1/2t max heavenly 50.1 cm/sec MV P1/2t 58.2 msec MVA(P1/2t) 3.8 cm\S\2 MV dec slope 252.4 cm/sec\S\2 MV dec time 0.19 sec Ao V2 max 135.9 cm/sec Ao max PG 7.4 mmHg Ao max PG (full) 3.3 mmHg LV V1 max PG 4.1 mmHg LV V1 max 101.5 cm/sec
--- NOTE | 2017-07-21 17:52 | Discharge Instructions ---
Discharge Instructions Date of Service Jul 21, 2017. Admission Reason for Admission: Precordial Chest Pain Discharge Discharge Diagnosis / Problem: Chest pain-noncardiac Discharge Goals Goal(s): Improve disease control, Diagnostic testing, Therapeutic intervention Activity Recommendations Activity Limitations: resume your previous activity . Instructions / Follow-Up Instructions / Follow-Up You were admitted with chest pressure symptoms and lightheadedness. You had testing that showed you did NOT have a heart attack. You do have congestive heart failure that is moderate to severe in nature. It is important that you follow up with the [facility] within 1-2 weeks, as well as follow up with your PCP within 1 week. Call 911 and go to the Emergency Room if: * You have tightness or pain in your chest that does not go away with rest or Nitroglycerin * You are very short of breath even with rest Call your doctor if any of the following symptoms or problems start or get worse: * Shortness of breath or difficulty breathing * Wake up at night short of breath * Chest pain * Cough * Swelling of your hands, fee, or legs * More fatigued or tired with your normal activity * Palpitations - sudden fast heart beats WEIGHT * Weigh yourself every morning after using the bathroom. * Use the same scale. * Wear the same amount of clothing. * Write your weight down on your chart. * Call your doctor if you gain more than 2-3 pounds in 1-2 days. MEDICATIONS * Use this discharge instruction sheet for instructions. * Take your medications at the time your doctor ordered. * Do not skip a dose of your medicines. * If you miss a dose of medicine, take as soon as possible, but DO NOT DOUBLE A DOSE. * Read your medicine information when you get home. * Know all of the side effects of your medicine. * Call your doctor's office if you have any side effects. * Be sure all of your doctors know what medicine and herbs you take (including cold, flu, and herbal medicine). * Pain Medicine: If you do not get relief from your pain, please call your doctor for help. Take the following with you to your follow-up doctor appointments: * Weight Chart * Medication List * List of questions Do not drink excessive alcohol, beer or wine. Current Hospital Diet Patient's current hospital diet: AHA Diet (Heart Healthy) Discharge Diet Recommended Diet: AHA Diet (Heart Healthy), Low Sodium Diet (2gm Na) Procedures Procedures Performed: ECHOCARDIOGRAM Chest xray Pending Studies Studies pending at discharge: no Laboratory Results Hemoglobin A1c Test 07/21/17 04:56 Range/Units Estimated Average Glucose 108 mg/dl Hemoglobin A1c 5.4 4.5-5.6 % Lipid Panel Test 07/21/17 04:56 Range/Units Triglycerides Level 253 H 0-150 mg/dl Cholesterol Level 191 0-200 mg/dl HDL Cholesterol 45 mg/dl Cholesterol/HDL Ratio 4.2 LDL Cholesterol, Calculated 95 mg/dl Medical Emergencies . Who to Call and When: Medical Emergencies: If at any time you feel your situation is an emergency, please call 911 immediately. . Non-Emergent Contact Non-Emergency issues call your: Primary Care Provider, [facility] Call Non-Emergent contact if: your pain is not controlled, your pain is worsening, your pain is unusual for you, your pain is concerning you, you have any medication questions . . "Provider Documentation" section prepared by Whitney Ware. .
[2017-07-21 17:56] VITALS: BP 121/74; PULSE 81; TEMP 36.6; O2SAT 94
--- NOTE | 2017-07-21 18:41 | Discharge Summary ---
Discharge Summary Date of Service Jul 21, 2017. Discharge Summary Admission Date: Jul 20, 2017 at 15:26 Discharge Date: Jul 21, 2017 Discharge Disposition: Home Principal Diagnosis: Chest pain-noncardiac Problems/Secondary Diagnoses: CAD with evidence of inferior wall SC on ECG and previous ECHO and NM stress since 2008\\ Ischemic cardiomyopathy Chronic systolic CHF w/ EF of 45-50% on ECHO 11/2015 and 26% on NM stress from 2015, EF 30-35% on echo from 07/21/17 Paroxysmal a.fib not on AC due to refusal Mild mitral regurgitation HLD-intolerance to all statins HTN COPD CKD stage III Gout OA GERD BPH Beta-corrina intolerance Procedures: ECHOCARDIOGRAM: Technically difficult study despite use of Definity ultrasound contrast. * 1. Normal LV size, borderline concentric LVH. * 2. Moderate to severe LV dysfunction. LVEF 30-35%. Regional wall motion abnormalities as described above. * 3. Normal RV size and function. * 4. Mild mitral regurgitation. * 5. Normal estimated CVP. * 6. No prior studies for comparison. Chest xray Consultations: Cardiology Medication Reconciliation Continued Medications: Albuterol Sulfate (Proair Respiclick) 108 Mcg/Act Aer 2 PUFF INH Q4 PRN for Shortness of Breath Allopurinol (Zyloprim) 300 Mg Tab 300 MG PO DAILY Amlodipine (Norvasc) 2.5 Mg Tab 2.5 MG PO DAILY Aspirin (Aspirin 81) 81 Mg Tab 81 MG PO DAILY Budesonide/Formoterol Fumarate (Symbicort 160/4.5 Inhaler ) Aero 2 PUFFS INH BID, INHALER Cetirizine (Zyrtec) 10 Mg Tab 10 MG PO DAILY, TAB Doxazosin Mesylate (Doxazosin) 8 Mg Tab 8 MG PO HS Hydroxyzine Hcl (Atarax) 25 Mg Tab 25 MG PO HS Lisinopril (Zestril) 40 Mg Tab 40 MG PO DAILY Olopatadine Hydrochloride (Pataday) 37 Drops/2.5 Ml Soln 1 DROPS OP DAILY, BTL Pantoprazole (Protonix) 20 Mg Tab 20 MG PO DAILY, #30 TAB Tiotropium [place] (Spiriva Handihaler) 30 Puff/540 Mcg Aerp 1 CAP INH DAILY, INHALER Tramadol (Ultram) 50 Mg Tab 100 MG PO TID PRN for Pain Discharge Exam Pt feeling very well. Has no further chest "fullness" or lightheadedness since admission. Nitropaste removed and several hours later he still had no further symptoms. Tele with one isolated 4 beat run of VT that was asymptomatic at 0200. Pt states that he would not want an ICD placed. He usually walks on the treadmill daily for 6-10 min/day and has no chest pain or SOB. This chest "fullness" came on at rest, lasted many hours, and then when the lightheadedness started, he came to the ER where his pain went away with NTG. He states that he weighs himself frequently, follows a low sodium diet, and has lost 25 lbs in the last few months purposefully. Review of Systems: Constitutional: No fever, No chills Eyes: No problem reported ENT: No problem reported Respiratory: No shortness of breath Cardiovascular: No chest pain, No palpitations Abdomen: No pain, No nausea, No vomiting Musculoskeletal: + joint pain (chronic arthritis) Genitourinary - Male: No problem reported Neurologic: No problem reported Psychiatric: No problem reported Endocrine: No problem reported Hematologic / Lymphatic: No problem reported Integumentary: No problem reported Physical Exam: General Appearance: WD/WN, no apparent distress Eyes: normal inspection, EOMI, sclerae normal ENT: hearing grossly normal Neck: trachea midline Respiratory/Chest: lungs clear, normal breath sounds, no respiratory distress, no accessory muscle use Cardiovascular: regular rate, rhythm, no edema, no gallop, no JVD, no murmur , normal peripheral pulses Abdomen / GI: normal bowel sounds, non tender, soft Extremities: normal inspection, no calf tenderness, normal capillary refill , no pedal edema, normal range of motion Neurologic/Psychiatric: alert, normal mood/affect, oriented x 3 Skin: normal color, warm/dry, no rash Hospital Course Patient is a 77 y/o male, with PMHx of CAD with evidence of inferior wall SC on ECG and previous ECHO and NM stress since 2008, ischemic cardiomyopathy w/ EF of 45-50% on ECHO 11/2015 and 26% on NM stress from 12/2015, chronic systolic CHF , paroxysmal a.fib not on AC due to refusal, HLD, HTN, COPD, CKD stage III, gout , OA, and GERD, who presented to the ED because of centralized chest pressure and lightheadedness that was relieved with NTG. Chest pain- he ruled out for SC with serially negative troponins. Given that his chest pressure went on for many hours and he had negative troponins and no EKG changes, it is highly unlikely that this was angina. Cardiology saw the patient and recommended possible stress test if he ruled out for ACS. Because no stress test could be done on the weekend, and patient was quite stable, he was discharged home. I discussed the case with on-call human services care specialist on the phone, Dr. Humphrey huang, who agreed with my plan. He will be seen in follow-up with cardiology and discuss whether or not he really needs a repeat stress test. His echocardiogram showed moderate to severe systolic function of the left ventricle with wall motion abnormalities. He did have one 4 beat run of nonsustained ventricular tachycardia that was asymptomatic while he was sleeping. Due to his intolerance to beta-blockers and refusal for consideration for ICD, no further management of that is needed at this time. He will be maintained on all of his current home medications. He does not need a diuretic as he is not in decompensated heart failure at this time. He should be followed closely with cardiology and his PCP. He was educated on day-to-day management of his CHF. It is possible that all of his symptoms are related to a GI issue. Regardless, they were all completely resolved and he was stable for discharge to home. Total Time Spent: Greater than 30 minutes This includes examination of the patient, discharge planning, medication reconciliation, and communication with other providers. Discharge Instructions Please refer to the electronic Patient Visit Report (Discharge Instructions) for additional information. Follow-Up With PCP within 1 week With Cardiology within 1-2 weeks Additional Copies To Alton Flores M.D.; Raul Oscar M.D.
== END 2017-07-21 18:14 | disposition home or self-care (01) ==
LOC: C.EDB 12:26 → C.2E 15:26 → ENRESERV 15:33
PROVIDERS: ADMIT Internal Medicine; ATTEND Internal Medicine
DX: R07.89 Other chest pain (principal); I25.10 Atherosclerotic heart disease of native coronary artery without angina pectoris; I25.5 Ischemic cardiomyopathy; E66.9 Obesity, unspecified; I50.22 Chronic systolic (congestive) heart failure; I48.0 Paroxysmal atrial fibrillation; I13.0 Hypertensive heart and chronic kidney disease with heart failure and stage 1 through stage 4 chronic kidney disease, or unspecified chronic kidney disease; N40.0 Benign prostatic hyperplasia without lower urinary tract symptoms; N18.3 Chronic kidney disease, stage 3 (moderate); M10.9 Gout, unspecified; M19.90 Unspecified osteoarthritis, unspecified site; I25.2 Old myocardial infarction; Z79.82 Long term (current) use of aspirin; Z87.891 Personal history of nicotine dependence; Z83.3 Family history of diabetes mellitus; Z82.49 Family history of ischemic heart disease and other diseases of the circulatory system

== ENCOUNTER → 2017-12-18 | Outpatient (CLI) | payer OTHER ==
[~2017-12-18] MED LIST changes: -ALLO100T PO; +ALLO300T2 PO; +AMLO2.5T PO; -FURO-85 PO; +HYDR-3124 PO; -LINA72CA PO; -LISI-725 PO; +LISI40TA PO; -PRT/20 PO
[2017-12-18 17:52] LABS: HEMATOCRIT 45.4 % (42-52); HEMOGLOBIN 14.7 g/dL (14.0-18.0); MEAN CELL VOLUME 94.4 fL (80-100); MEAN CORPUSCULAR HEMOGLOBIN 30.6 pg (25-34); MEAN CORPUSCULAR HGB CONC 32.4 g/dl (32-36); PLATELET COUNT 288 K/uL (130-400); RED CELL DISTRIBUTION WIDTH CV 15.1 % (11.5-14.5); RED CELL DISTRIBUTION WIDTH SD 51.9 fL (36.4-46.3); WHITE BLOOD COUNT 17.34 K/uL (4.8-10.8)
[2017-12-18 18:07] LABS: BLOOD UREA NITROGEN 62 mg/dl (7-18); CALCIUM 9.1 mg/dl (8.5-10.1); CARBON DIOXIDE 23 mmol/L (21-32); CREATININE 1.93 mg/dl (0.60-1.40); GLUCOSE 127 mg/dl (70-99); SODIUM 140 mmol/L (136-145); URIC ACID 7.5 mg/dl (2.6-7.2)
== END | disposition home or self-care (01) ==
LOC: C.LABMFLN 14:35
PROVIDERS: ATTEND Family Medicine
DX: M25.50 Pain in unspecified joint (principal); Z87.39 Personal history of other diseases of the musculoskeletal system and connective tissue; I50.21 Acute systolic (congestive) heart failure; M79.2 Neuralgia and neuritis, unspecified; I11.0 Hypertensive heart disease with heart failure

== ENCOUNTER 2022-08-01 00:43 | Inpatient (IN) ==
[2022-08-01] MEDS ORDERED: ALBUT/IPRATROP 3MG/0.5MG NEB 3 ML VIAL ONE (00:59)
[2022-08-01] MEDS ORDERED: ALBUT/IPRATROP 3MG/0.5MG NEB 3 ML VIAL INH STA (01:09)
[2022-08-01] MEDS ORDERED: methylPREDNISolone 125 MG/2 ML VIAL IV STA (01:09)
--- NOTE | 2022-08-01 01:21 | Emergency Department Note ---
History of Present Illness General Chief complaint: Respiratory Distress Stated complaint: RESPIRATORY DISTRESS Time Seen by Provider: 08/01/22 01:01 History of Present Illness This 82-year-old with a history of COPD and CHF presents to the ER for low O2 sats per the assisted. Patient is at the assisted for rehab. Patient states overall he is feeling better than when he was discharged to the assisted from [place] for sepsis. He is not sure what he was sick with. Patient denies chest pain, abdominal pain, fevers, vomiting, diarrhea. Patient's O2 sats on room air here are 99%. Home Medications Medication Instructions Recorded Confirmed Type aspirin 81 mg tablet,delayed 81 mg PO DAILY #90 tabs 11/05/18 08/01/22 Rx release metoprolol succinate 50 mg capsule 50 mg PO DAILY #90 ea 05/16/22 08/01/22 Rx sprinkle, ext. release 24 hr albuterol sulfate 90 mcg/actuation 2 puff inhalation Q4 PRN Wheezing 08/01/22 08/01/22 History aerosol inhaler apixaban 5 mg tablet 5 mg PO Q12 start 08/03/22 08/01/22 08/01/22 History apixaban 5 mg tablet 10 mg PO Q12 08/01/22 08/01/22 History colchicine 0.6 mg tablet (Colcrys) 0.3 mg PO DAILY 08/01/22 08/01/22 History docusate sodium 100 mg capsule 100 mg PO BID 08/01/22 08/01/22 History famotidine 20 mg tablet 20 mg PO Q OTHER DAY 08/01/22 08/01/22 History fluticasone fur. 100 mcg-umeclid 1 inh inhalation DAILY 08/01/22 08/01/22 History 62.5 mcg-vilant 25 mcg inhalat.powder (Trelegy Ellipta) melatonin 3 mg tablet 6 mg PO HS PRN Insomnia 08/01/22 08/01/22 History ondansetron 4 mg disintegrating 4 mg PO Q4 PRN nausea or vomiting 08/01/22 08/01/22 History tablet quetiapine 25 mg tablet (Seroquel) 25 mg PO HS PRN Anxiety 08/01/22 08/01/22 History sodium zirconium cyclosilicate 5 5 g PO QDL 08/01/22 08/01/22 History gram oral powder packet Allergies Allergy/AdvReac Type Severity Reaction Status Date / Time atorvastatin Allergy Unknown Unverified 08/01/22 02:51 carvedilol Allergy arthralgia Unverified 08/01/22 02:51 gabapentin Allergy Unknown Unverified 08/01/22 02:51 morphine Allergy Unknown Verified 08/01/22 02:51 rofecoxib Allergy Unknown Verified 08/01/22 02:51 Past Med/Surg History Medical History Atherosclerotic heart disease Benign essential hypertension Chronic kidney disease, stage 3 COPD (chronic obstructive pulmonary disease) Dyslipidemia Enlarged prostate without lower urinary tract symptoms (luts) History of esophageal reflux HLD (hyperlipidemia) Lumbar canal stenosis Lumbar disc herniation Osteoporosis Renal cyst Sepsis Smokeless tobacco use Surgical History History of cataract surgery bilateral History of lobectomy of lung right side upper lobe noncancerous Family History Family/Other Diabetes Father Stroke Brother Myocardial infarction Mother , at a young age Cancer Denies family history of Ovarian cancer Prostate cancer Breast cancer Colorectal cancer Social History Smoking Status: Former smoker Tobacco Type: Cigarettes Age Started Using Tobacco: 17; Age Quit Using Tobacco: 57; packs per day: 1; Second Hand Exposure: No; Hx Alcohol Use: Yes Alcohol type: hard liquor Alcohol type Comment: whiskey Hx Substance Use: No Preferred Language: Urdu Communication Ability: Effective Visual Impairment: Partially Limited Hearing Ability: Normal Rubber Chemist Required: No Beliefs That Will Affect Care: None marital status: Current Living Situation: Alone current occupational status: employed and retired current occupation: [employer] Feels Safe at Home: Yes Childhood Exposure to Second-Hand Smoke: No caffeine: Yes (coffee - 1 cup daily) Dental Care, Regularly: Yes Physical Activity Frequency: Daily Physical Activity Frequency Comment: walking Seatbelt Use: sometimes Sunscreen Use: No Do you think of yourself as: straight/heterosexual Review of Systems A total of 10 systems reviewed and were otherwise negative Physical Exam Vital Signs Vital Signs - 24 hr 08/01/22 01:12 08/01/22 01:12 08/01/22 01:09 Temperature 36.2 C L Temperature Source Rectal Pulse Rate 61 63 Pulse Rate from SpO2 Sensor Respiratory Rate 22 Respiratory Effort / Characteristics Labored Respiratory Depth Deep Respiratory Pattern Regular Blood Pressure 112/80 Blood Pressure Mean 90 Blood Pressure Position Semi-fowlers Pulse Oximetry 100 Oxygen Delivery Method Room Air Room Air Oxygen Flow Rate Sepsis Recent Fever Within 48 Hours No Sepsis New/Unexplained Change in Mental Status Yes Sepsis Action Taken by Nursing Physician Notified 08/01/22 01:59 08/01/22 02:02 08/01/22 01:31 Temperature Temperature Source Pulse Rate 57 L Pulse Rate from SpO2 Sensor Respiratory Rate Respiratory Effort / Characteristics Respiratory Depth Respiratory Pattern Blood Pressure 115/74 Blood Pressure Mean 87 Blood Pressure Position Pulse Oximetry 98 Oxygen Delivery Method Room Air Room Air Oxygen Flow Rate 98 Sepsis Recent Fever Within 48 Hours Sepsis New/Unexplained Change in Mental Status Sepsis Action Taken by Nursing 08/01/22 01:31 08/01/22 02:01 08/01/22 02:01 Temperature Temperature Source Pulse Rate 62 61 Pulse Rate from SpO2 Sensor 58 L Respiratory Rate 15 18 Respiratory Effort / Characteristics Respiratory Depth Respiratory Pattern Blood Pressure 117/86 Blood Pressure Mean 96 Blood Pressure Position Pulse Oximetry 99 Oxygen Delivery Method Room Air Oxygen Flow Rate Sepsis Recent Fever Within 48 Hours Sepsis New/Unexplained Change in Mental Status Sepsis Action Taken by Nursing 08/01/22 02:30 08/01/22 02:30 Temperature Temperature Source Pulse Rate 60 Pulse Rate from SpO2 Sensor 61 Respiratory Rate 14 Respiratory Effort / Characteristics Respiratory Depth Respiratory Pattern Blood Pressure 133/81 Blood Pressure Mean 98 Blood Pressure Position Pulse Oximetry 99 Oxygen Delivery Method Room Air Oxygen Flow Rate Sepsis Recent Fever Within 48 Hours Sepsis New/Unexplained Change in Mental Status Sepsis Action Taken by Nursing VITALS: Vitals are noted on the nurse's note and reviewed by myself. Vital signs pulse ox 99% on room air. GENERAL: Elderly male hard of hearing, in no acute distress, nondiaphoretic, well-developed well-nourished. SKIN: The skin was without rashes, erythema, edema, or bruising. There is no tenting of the skin. Capillary reflex less than 2 seconds. HEAD: Normocephalic atraumatic. EARS: External auditory canals clear, tympanic membranes pearly reis without erythema or effusion bilaterally. EYES: Pupils equal round and reactive to light and accommodation. Conjunctivae without injection, sclerae without icterus. Extraocular movements intact. NOSE: Patent, turbinates without inflammation or discharge. No sinus tenderness. MOUTH: Mucous membranes moist. Pharynx without erythema or exudate. Uvula midline. Airway patent. Tongue does not deviate. NECK: Supple without nuchal rigidity. No lymphadenopathy. No thyromegaly. Cervical spine is nontender. No JVD. HEART: Regular rate and rhythm LUNGS: Mild diffuse inspiratory and end expiratory wheezes, No retractions or accessory muscle use. ABDOMEN: Positive bowel sounds x 4. Normal tympanic percussion. Soft, nontender, without masses or organomegaly. Quevedo sign negative. No guarding or rebound tenderness. No CVA tenderness MUSCULOSKELETAL: No muscle atrophy, erythema, or edema noted. NEURO: Patient was alert and oriented to person place and time. Normal sensati on to light and sharp touch. No focal neurological deficits. Course Administered Medications Discontinued Medications Albuterol (Albut/Ipratrop 3mg/0.5mg Neb 3 Ml Vial) 3 ml INH NOW STA Stop: 08/01/22 01:10 Last Admin: 08/01/22 01:54 Dose: 3 ml Documented By: Piperacillin Sod/Tazobactam Sod (Zosyn) 4.5 gm in 120 mls @ 240 mls/hr IV NOW ONE Stop: 08/01/22 04:20 Last Infusion: 08/01/22 05:33 Dose: 0 mls/hr Documented By: Admin: 08/01/22 05:09 Dose: 240 mls/hr Documented By: Methylprednisolone (Methylprednisolone 125 Mg/2 Ml Vial) 125 mg IV NOW STA Stop: 08/01/22 01:10 Last Admin: 08/01/22 01:56 Dose: 125 mg Documented By: Medical Decision Making Medical Records Attestation: I reviewed the patient's medical records. Home Medications Current Medication List: was personally reviewed by me Laboratory Data Attestation: I reviewed the patient's lab results. 08/01/22 01:00 08/01/22 01:00 Lab Results 08/01/22 08/01/22 08/01/22 Range/Units 01:00 01:00 01:34 WBC 18.64 H (4.8-10.8) K/ul RBC 4.68 L (4.70-6.10) M/uL Hgb 13.6 L (14.0-18.0) g/dl Hct 42.2 (42.0-52.0) % MCV 90.2 (80.0-100.0) fL MCH 29.1 (25.0-34.0) pg MCHC 32.2 (32.0-36.0) g/dL RDW Std Deviation 48.7 H (36.4-46.3) fL RDW Coeff of Surjit 15.1 H (11.5-14.5) % Plt Count 351 (130-400) K/uL MPV 12.0 (9.4-12.4) fL Immature Gran % (Auto) 0.6 % Neut % (Auto) 78.0 % Lymph % (Auto) 6.0 % [place] % (Auto) 12.7 % Eos % (Auto) 2.3 % Baso % (Auto) 0.4 % Neut # (Auto) 14.57 H (1.40-6.50) K/uL Lymph # (Auto) 1.11 L (1.2-3.4) K/uL [place] # (Auto) 2.36 H (0.11-0.59) K/uL Eos # (Auto) 0.42 (0-0.50) K/uL Baso # (Auto) 0.07 (0-0.2) K/uL Immature Gran # (Auto) 0.11 (0.01-0.20) K/uL Absolute Nucleated RBC 0.11 (0-0.12) K/uL Nucleated RBC % (auto) 0.6 % VBG pH (7.36-7.41) VBG pCO2 (38-50) mmHg VBG pO2 mmHg VBG HCO3 mmol/L VBG O2 Saturation % VBG Base Excess mEq/L Sodium 135 L (136-145) mmol/L Potassium 4.6 (3.5-5.1) mmol/L Chloride 100 (98-107) mmol/L Carbon Dioxide 20 L (21-32) mmol/L Anion Gap 15 H (3-11) BUN 119 H (6-23) mg/dl Creatinine 2.87 H (0.6-1.4) mg/dl Est Cr Clr Drug Dosing 23.2 ml/min Est GFR ( Amer) 22.9 ml/min Est GFR (Non-Af Amer) 19.8 ml/min BUN/Creatinine Ratio 41.5 H (10-20) Glucose 135 H (70-99(Fasting)) mg/dl Calcium 9.1 (8.5-10.1) mg/dl Magnesium 2.8 H (1.7-2.4) mg/dl Total Bilirubin 1.6 H (0.2-1.0) mg/dl AST 46 H (13-39) U/L ALT 132 H (7-52) U/L Alkaline Phosphatase 108 H (34-104) U/L Troponin I High Sens 304.7 H* (0-20) pg/ml B-Natriuretic Peptide > 4700 H (0-100) pg/ml Total Protein 6.5 (6.0-8.3) gm/dl Albumin 3.8 (3.4-5.0) gm/dl Globulin 2.7 (2.5-4.0) gm/dl Albumin/Globulin Ratio 1.4 (0.9-2) SARS-CoV-2 (PCR) (Negative) 08/01/22 08/01/22 08/01/22 Range/Units 01:34 02:35 03:10 WBC (4.8-10.8) K/ul RBC (4.70-6.10) M/uL Hgb (14.0-18.0) g/dl Hct (42.0-52.0) % MCV (80.0-100.0) fL MCH (25.0-34.0) pg MCHC (32.0-36.0) g/dL RDW Std Deviation (36.4-46.3) fL RDW Coeff of Surjit (11.5-14.5) % Plt Count (130-400) K/uL MPV (9.4-12.4) fL Immature Gran % (Auto) % Neut % (Auto) % Lymph % (Auto) % [place] % (Auto) % Eos % (Auto) % Baso % (Auto) % Neut # (Auto) (1.40-6.50) K/uL Lymph # (Auto) (1.2-3.4) K/uL [place] # (Auto) (0.11-0.59) K/uL Eos # (Auto) (0-0.50) K/uL Baso # (Auto) (0-0.2) K/uL Immature Gran # (Auto) (0.01-0.20) K/uL Absolute Nucleated RBC (0-0.12) K/uL Nucleated RBC % (auto) % VBG pH 7.21 L (7.36-7.41) VBG pCO2 52 H (38-50) mmHg VBG pO2 22 mmHg VBG HCO3 21 mmol/L VBG O2 Saturation < 60.0 % VBG Base Excess -7.4 mEq/L Sodium (136-145) mmol/L Potassium (3.5-5.1) mmol/L Chloride (98-107) mmol/L Carbon Dioxide (21-32) mmol/L Anion Gap (3-11) BUN (6-23) mg/dl Creatinine (0.6-1.4) mg/dl Est Cr Clr Drug Dosing ml/min Est GFR ( Amer) ml/min Est GFR (Non-Af Amer) ml/min BUN/Creatinine Ratio (10-20) Glucose (70-99(Fasting)) mg/dl Calcium (8.5-10.1) mg/dl Magnesium (1.7-2.4) mg/dl Total Bilirubin (0.2-1.0) mg/dl AST (13-39) U/L ALT (7-52) U/L Alkaline Phosphatase (34-104) U/L Troponin I High Sens Cancelled (0-20) pg/ml B-Natriuretic Peptide (0-100) pg/ml Total Protein (6.0-8.3) gm/dl Albumin (3.4-5.0) gm/dl Globulin (2.5-4.0) gm/dl Albumin/Globulin Ratio (0.9-2) SARS-CoV-2 (PCR) NEGATIVE (Negative) Imaging Data Attestation: I personally reviewed and interpreted this imaging study as follows: MDM Narrative Prior records/ancillary studies reviewed. Triage Nursing notes reviewed. Additional history obtained from the nursing. The patient's history was concerning for respiratory difficulties. Differential diagnosis: Etiologies such as infections, reactive airway disease, pneumonia, pneumothorax, COPD, CHF, cardiac ischemia, pulmonary embolism, musculoskeletal, gastrointestinal, as well as others were entertained. Physical examination: As above. ER treatment provided: An order was placed for continuous cardiac monitoring. The monitor shows a rate of 60-1 50 with a sinus rhythm per my interpretation. Nebulizer and steroids were ordered I obtain the records from [facility] and did review the patient's recent discharge from their facility to the rehab. Patient was admitted for severe sepsis and UTI. Zosyn was ordered On reassessment the patient felt better. Diagnostic interpretation by me: The electrocardiogram was ordered for dyspnea EKG: Normal sinus, right bundle branch block, left axis deviation, no acute ST-T wave changes. Impression right bundle branch block with a left axis deviation independently interpreted by myself The labs Independently Interpreted by myself revealed elevated troponin, VBG was reviewed Imaging studies: Chest x-ray with no acute consolidation, pneumothorax or free air per my independent interpretation. Consultation: A consultation was placed with the hospitalist. The case was discussed and diagnostics were reviewed. The patient was evaluated in the ER for further treatment. After the patient was admitted his temperature dropped and blood cultures lactic antibiotics were ordered. Patient has a history of heart failure so fluids were held. Prior urine culture was reviewed. Urine was sent. He was sent for advanced imaging. Medicine was made aware of the change of the patient's status. Patient himself still had no complaints. This appears to be consistent with COPD exacerbation with elevated troponin with concerns for sepsis. Patient was medicated as above. Labs and diagnostics were independently interpreted by myself. Medicine was consulted and the case was di scussed. Patient will be admitted for COPD exacerbation with an elevated troponin. EKG is nonischemic. Repeat was ordered. Patient is on a DOAC for history of PE. He has not missed any doses. By the evaluation outlined above emergent etiologies such as CHF, pulmonary embolism, reactive airway disease, pneumonia, pneumothorax, musculoskeletal as well as others were deemed relatively unlikely. The pt informed about the findings as listed above. All questions were answered and pleased with the treatment. The chart was completed utilizing [employer] Speech voice recognition software. Grammatical errors, random word insertions, pronoun errors, and incomplete sentences are an occassional consequence of this system due to software limitations, ambient noise, and hardware issues. Any formal questions or concerns about the content, text, or information contained within the body of t his dictation should be directly addressed to the physician ambulance assistant for clarification. Impression & Plan Acute exacerbation of chronic obstructive pulmonary disease, Elevated troponin, Sepsis Discharge Plan Visit Data Chief Complaint: Respiratory Distress Stated Complaint: RESPIRATORY DISTRESS ED Provider: Rashaun Silva ED Midlevel Provider: Deyanira Bernal Discharge Problem: Acute exacerbation of chronic obstructive pulmonary disease, Elevated troponin, Sepsis Patient Disposition: Admitted As Inpatient Condition: Fair Discharge Instructions Interventions: ED Discharge Assessment Last Done: 08/01/22 06:02
[2022-08-01 01:27] LABS: Basophils # (auto) 0.07 K/uL (0-0.2); Basophils % (auto) 0.4 %; Eosinophils # (auto) 0.42 K/uL (0-0.50); Eosinophils % (auto) 2.3 %; Hematocrit (blood only) 42.2 % (42.0-52.0); Hemoglobin 13.6 g/dl (14.0-18.0); Immature Granulocytes # (auto) 0.11 K/uL (0.01-0.20); Immature Granulocytes % (auto) 0.6 %; Lymphocytes # (auto) 1.11 K/uL (1.2-3.4); Mean Corpuscular Hemoglobin 29.1 pg (25.0-34.0); Mean Corpuscular Hgb Conc 32.2 g/dL (32.0-36.0); Mean Corpuscular Volume 90.2 fL (80.0-100.0); Monocytes # (auto) 2.36 K/uL (0.11-0.59); Monocytes % (auto) 12.7 %; Neutrophils # (auto) 14.57 K/uL (1.40-6.50); Nucleated RBC # (auto) 0.11 K/uL (0-0.12); Nucleated RBC % (auto) 0.6 %; Platelet Count 351 K/uL (130-400); RDW Coefficient of Variation 15.1 % (11.5-14.5); RDW Standard Deviation 48.7 fL (36.4-46.3); Red Blood Count 4.68 M/uL (4.70-6.10); White Blood Count 18.64 K/ul (4.8-10.8)
[2022-08-01 01:39] LABS: Base Excess VBG -7.4 mEq/L; HCO3 VBG 21 mmol/L; Oxygen Saturation VBG < 60.0 %; PCO2 VBG 52 mmHg (38-50); PO2 VBG 22 mmHg; pH VBG 7.21 (7.36-7.41)
[2022-08-01 01:39] LABS: Albumin Globulin Ratio 1.4 (0.9-2); Albumin Level 3.8 gm/dl (3.4-5.0); BUN Creatinine Ratio 41.5 (10-20); Bilirubin,Total 1.6 mg/dl (0.2-1.0); Calcium 9.1 mg/dl (8.5-10.1); Creatinine Clr Calc Pharmacy 23.2 ml/min; Est GFR (African American) 22.9 ml/min; Est GFR (Non-African American) 19.8 ml/min; Globulin 2.7 gm/dl (2.5-4.0); Magnesium 2.8 mg/dl (1.7-2.4); Potassium 4.6 mmol/L (3.5-5.1); Total Protein 6.5 gm/dl (6.0-8.3)
[2022-08-01 01:51] LABS: Troponin I High Sensitivity 304.7 pg/ml (0-20)
[2022-08-01] MEDS ORDERED: PIPERACILLIN/TAZOBACTAM 4.5 GM/120 ML BAG IV ONE (03:51)
--- NOTE | 2022-08-01 04:16 | History & Physical Report ---
Date of Service August 01, 2022 Assessment & Plan (1) SOB (shortness of breath): Plan: 82-year-old male with multiple medical problems, recent hospitalization for severe sepsis secondary to complicated UTI with multiorgan dysfunction. Patient was discharged to rehab yesterday 07/31/2022 and was ultimately sent to the ER due to concern for respiratory distress. Patient is a poor historian. No family available at bedside. He denies respiratory distress. Chest x-ray is within normal limits. He has had adequate oxygenation on room air in the ER. Check procalcitonin Aspiration precautions Albuterol as needed -Patient given dose of Zosyn in the ER. Will await procalcitonin prior to continuing antibiotic (2) PAF (paroxysmal atrial fibrillation): Plan: Rate controlled. Patient anticoagulated on apixaban for recent diagnosis of acute PE Continue apixaban Continue metoprolol (3) Chronic systolic (congestive) heart failure: Plan: Suspect some degree of volume overload given elevated BNP greater than 4700 as well as increased weight Lasix 40 mg IV daily Monitor intake and output Monitor daily standing weights (4) COPD (chronic obstructive pulmonary disease): Plan: Wheezing noted by ER provider. Patient was given neb treatment as well as Solu- Medrol. No wheezing appreciated during my exam Continue Trelegy Ellipta Continue albuterol as needed Continue to monitor respiratory status (5) Benign essential hypertension: Plan: Chronic. Well-controlled. Blood pressure presently 126/84 Continue metoprolol Continue to monitor (6) Chronic kidney disease, stage 3: Plan: Elevation of BUN = 119, creatinine = 2.87. Patient appears slightly volume overloaded on laboratory values. Lasix 40 mg IV daily Monitor intake and output Monitor BUN and creatinine Avoid nephrotoxic agents Renal dosing were needed Consider nephrology consult History of Present Illness Chief Complaint: Respiratory distress Primary Care Provider: Raul Oscar MD Celio Robb is an 82-year-old male with history of ischemic cardiomyopathy with heart failure with reduced EF, EF = 25 to 29%, CAD, hypertension, COPD, CKD, GERD presenting from rehab with report of respiratory distress. Patient was recently admitted to [facility] in [place] from 07/24/2022 - 07/31/2022 with severe sepsis and multisystem organ failure. Patient was found to have a complicated UTI as well as VICTORIANO, increased LFTs and demand ischemia. He was also found to have an acute pulmonary embolism during that hospital stay. He was treated with IV antibioticsvancomycin and Zosyn as well as Eliquis. Patient was ultimately discharged to [facility] on 07/31/2022. He was sent to the ER shortly after with report of respiratory distress. Per chart review, at 23:40 the patient developed respiratory distress requiring 15 L of oxygen. In the ER, he is hypothermic with temperature of 35.9, heart rate and blood pressure stable, respiratory status has been stable with no further episodes of distress, adequate oxygenation on room air. Patient offers no complaints aside from feeling cold. He specifically denies chest pain, palpitations, cough, shortness of breath. Denies abdominal pain, nausea, vomiting, diarrhea. ER course: Solu-Medrol 125 mg IV Albuterol 3 mL neb Allergies Allergy/AdvReac Type Severity Reaction Status Date / Time atorvastatin Allergy Unknown Unverified 08/01/22 02:51 carvedilol Allergy arthralgia Unverified 08/01/22 02:51 gabapentin Allergy Unknown Unverified 08/01/22 02:51 morphine Allergy Unknown Verified 08/01/22 02:51 rofecoxib Allergy Unknown Verified 08/01/22 02:51 Home Medications Medication Instructions Recorded Confirmed Type aspirin 81 mg tablet,delayed 81 mg PO DAILY #90 tabs 11/05/18 08/01/22 Rx release metoprolol succinate 50 mg capsule 50 mg PO DAILY #90 ea 05/16/22 08/01/22 Rx sprinkle, ext. release 24 hr albuterol sulfate 90 mcg/actuation 2 puff inhalation Q4 PRN Wheezing 08/01/22 08/01/22 History aerosol inhaler apixaban 5 mg tablet 5 mg PO Q12 start 08/03/22 08/01/22 08/01/22 History apixaban 5 mg tablet 10 mg PO Q12 08/01/22 08/01/22 History colchicine 0.6 mg tablet (Colcrys) 0.3 mg PO DAILY 08/01/22 08/01/22 History docusate sodium 100 mg capsule 100 mg PO BID 08/01/22 08/01/22 History famotidine 20 mg tablet 20 mg PO Q OTHER DAY 08/01/22 08/01/22 History fluticasone fur. 100 mcg-umeclid 1 inh inhalation DAILY 08/01/22 08/01/22 History 62.5 mcg-vilant 25 mcg inhalat.powder (Trelegy Ellipta) melatonin 3 mg tablet 6 mg PO HS PRN Insomnia 08/01/22 08/01/22 History ondansetron 4 mg disintegrating 4 mg PO Q4 PRN nausea or vomiting 08/01/22 08/01/22 History tablet quetiapine 25 mg tablet (Seroquel) 25 mg PO HS PRN Anxiety 08/01/22 08/01/22 History sodium zirconium cyclosilicate 5 5 g PO QDL 08/01/22 08/01/22 History gram oral powder packet Past Med/Surg History Medical History Atherosclerotic heart disease Benign essential hypertension Chronic kidney disease, stage 3 COPD (chronic obstructive pulmonary disease) Dyslipidemia Enlarged prostate without lower urinary tract symptoms (luts) History of esophageal reflux HLD (hyperlipidemia) Lumbar canal stenosis Lumbar disc herniation Osteoporosis Renal cyst Sepsis Smokeless tobacco use Surgical History History of cataract surgery bilateral History of lobectomy of lung right side upper lobe noncancerous Family History Family/Other Diabetes Father Stroke Brother Myocardial infarction Mother , at a young age Cancer Denies family history of Ovarian cancer Prostate cancer Breast cancer Colorectal cancer Social History Smoking Status: Former smoker Tobacco Type: Cigarettes Age Started Using Tobacco: 17; Age Quit Using Tobacco: 57; packs per day: 1; Second Hand Exposure: No; Hx Alcohol Use: Yes Alcohol type: hard liquor Alcohol type Comment: whiskey Hx Substance Use: No Preferred Language: Kuwaiti Communication Ability: Effective Visual Impairment: Partially Limited Hearing Ability: Normal Certified Endoscopy Technician Required: No Beliefs That Will Affect Care: None marital status: Current Living Situation: Alone current occupational status: employed and retired 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 Feels Safe at Home: Yes Childhood Exposure to Second-Hand Smoke: No caffeine: Yes (coffee - 1 cup daily) Dental Care, Regularly: Yes Physical Activity Frequency: Daily Physical Activity Frequency Comment: walking Seatbelt Use: sometimes Sunscreen Use: No Do you think of yourself as: straight/heterosexual Review of Systems Review of Systems: All systems reviewed & are unremarkable except as noted in HPI & below Physical Exam Physical Exam: General: Chronically ill elderly male patient resting comfortably, NAD, non- toxic in appearance Skin: warm, dry, intact, no rashes or lesions HEENT: NC/AT, PERRL, EOMI, anicteric sclera, conjunctiva without injection, external ear normal to inspection and nontender, nares patent, moist mucus membranes, dentition intact, no oropharyngeal lesions, neck supple, trachea midline, no LAD, no thyromegaly, no JVD Heart: +S1/S2, regular, no m/r/g Lungs: equal air entry bilaterally, no rales/rhonchi/wheezes Abd: +BS, soft, NT/ND, no masses/organomegaly/ascites Ext: warm, 2+ pulses in UE/LE bilaterally, no clubbing/cyanosis or edema Neuro: nonfocal, speech intact, no facial droop, moving all extremities on command with equal strength 5/5 Results & Data Results & Data Vital Signs (Past 12 Hours) Vital Signs Temp Pulse Resp BP Pulse Ox O2 Del Method O2 Flow Rate 08/01/22 03:30 61 15 08/01/22 03:30 126/84 08/01/22 02:30 60 14 99 Room Air 08/01/22 02:30 133/81 08/01/22 02:01 117/86 08/01/22 02:01 61 18 08/01/22 01:31 62 15 99 Room Air 08/01/22 01:31 115/74 08/01/22 03:49 35.9 C L 08/01/22 02:02 Room Air 98 08/01/22 01:59 57 L 98 Room Air 08/01/22 01:09 63 08/01/22 01:12 Room Air 08/01/22 01:12 36.2 C L 61 22 112/80 100 Room Air Laboratory Results Laboratory Results WBC 18.64 K/ul (4.8-10.8) H 08/01/22 01:00 RBC 4.68 M/uL (4.70-6.10) L 08/01/22 01:00 Hgb 13.6 g/dl (14.0-18.0) L 08/01/22 01:00 Hct 42.2 % (42.0-52.0) 08/01/22 01:00 MCV 90.2 fL (80.0-100.0) 08/01/22 01:00 MCH 29.1 pg (25.0-34.0) 08/01/22 01:00 MCHC 32.2 g/dL (32.0-36.0) 08/01/22 01:00 RDW Std Deviation 48.7 fL (36.4-46.3) H 08/01/22 01:00 RDW Coeff of Surjit 15.1 % (11.5-14.5) H 08/01/22 01:00 Plt Count 351 K/uL (130-400) 08/01/22 01:00 MPV 12.0 fL (9.4-12.4) 08/01/22 01:00 Immature Gran % (Auto) 0.6 % 08/01/22 01:00 Neut % (Auto) 78.0 % 08/01/22 01:00 Lymph % (Auto) 6.0 % 08/01/22 01:00 Beauregard % (Auto) 12.7 % 08/01/22 01:00 Eos % (Auto) 2.3 % 08/01/22 01:00 Baso % (Auto) 0.4 % 08/01/22 01:00 Neut # (Auto) 14.57 K/uL (1.40-6.50) H 08/01/22 01:00 Lymph # (Auto) 1.11 K/uL (1.2-3.4) L 08/01/22 01:00 Beauregard # (Auto) 2.36 K/uL (0.11-0.59) H 08/01/22 01:00 Eos # (Auto) 0.42 K/uL (0-0.50) 08/01/22 01:00 Baso # (Auto) 0.07 K/uL (0-0.2) 08/01/22 01:00 Immature Gran # (Auto) 0.11 K/uL (0.01-0.20) 08/01/22 01:00 Absolute Nucleated RBC 0.11 K/uL (0-0.12) 08/01/22 01:00 Nucleated RBC % (auto) 0.6 % 08/01/22 01:00 VBG pH 7.21 (7.36-7.41) L 08/01/22 01:34 VBG pCO2 52 mmHg (38-50) H 08/01/22 01:34 VBG pO2 22 mmHg 08/01/22 01:34 VBG HCO3 21 mmol/L 08/01/22 01:34 VBG O2 Saturation < 60.0 % 08/01/22 01:34 VBG Base Excess -7.4 mEq/L 08/01/22 01:34 Sodium 135 mmol/L (136-145) L 08/01/22 01:00 Potassium 4.6 mmol/L (3.5-5.1) 08/01/22 01:00 Chloride 100 mmol/L (98-107) 08/01/22 01:00 Carbon Dioxide 20 mmol/L (21-32) L 08/01/22 01:00 Anion Gap 15 (3-11) H 08/01/22 01:00 BUN 119 mg/dl (6-23) H 08/01/22 01:00 Creatinine 2.87 mg/dl (0.6-1.4) H 08/01/22 01:00 Est Cr Clr Drug Dosing 23.2 ml/min 08/01/22 01:00 Est GFR ( Amer) 22.9 ml/min 08/01/22 01:00 Est GFR (Non-Af Amer) 19.8 ml/min 08/01/22 01:00 BUN/Creatinine Ratio 41.5 (10-20) H 08/01/22 01:00 Glucose 135 mg/dl (70-99(Fasting)) H 08/01/22 01:00 Calcium 9.1 mg/dl (8.5-10.1) 08/01/22 01:00 Magnesium 2.8 mg/dl (1.7-2.4) H 08/01/22 01:00 Total Bilirubin 1.6 mg/dl (0.2-1.0) H 08/01/22 01:00 AST 46 U/L (13-39) H 08/01/22 01:00 ALT 132 U/L (7-52) H 08/01/22 01:00 Alkaline Phosphatase 108 U/L (34-104) H 08/01/22 01:00 Troponin I High Sens 304.7 pg/ml (0-20) H* 08/01/22 01:00 B-Natriuretic Peptide > 4700 pg/ml (0-100) H 08/01/22 01:34 Total Protein 6.5 gm/dl (6.0-8.3) 08/01/22 01:00 Albumin 3.8 gm/dl (3.4-5.0) 08/01/22 01:00 Globulin 2.7 gm/dl (2.5-4.0) 08/01/22 01:00 Albumin/Globulin Ratio 1.4 (0.9-2) 08/01/22 01:00 SARS-CoV-2 (PCR) NEGATIVE (Negative) 08/01/22 02:35 PG Care Time/CCT Total # of Minutes Spent Total Time Spent with Patient: Total time spent is greater than 50% in coordination of care (as documented) at patient's floor/unit and/or counseling patient: Coding Level of Care Code 20750 INT INP/OBS CARE 3/75MIN Diagnoses SOB (shortness of breath) R06.02 PAF (paroxysmal atrial fibrillation) I48.0 Chronic systolic (congestive) heart failure I50.22 COPD (chronic obstructive pulmonary disease) J44.9 Benign essential hypertension I10 Chronic kidney disease, stage 3 N18.3
[2022-08-01 04:55] LABS: Appearance Urine Clear (Clear); Bacteria Urine Automated Negative (Negative); Bilirubin Urine Negative (Negative); Blood Urine Negative (Negative); Color Urine Dark Yellow; Epithelial Cell Urine Auto >30 /lpf (0-5); Glucose Urine UA Negative (Negative); Ketones Urine Negative (Negative); Leukocyte Esterase Urine 2+ (Negative); Nitrite Urine Negative (Negative); Protein Urine 2+ (Negative); RBC Urine Automated 0-4 /hpf (0-4); Specific Gravity Urine 1.017 (1.000-1.030); Urobilinogen Urine Negative (Negative)
[2022-08-01] MEDS ORDERED: ONDANSETRON INJ 2 MG/ML 2 ML VIAL IV PRN (06:01)
[2022-08-01] MEDS ORDERED: ALBUTEROL HFA 8 GM INHALER INH PRN (06:01)
[2022-08-01] MEDS ORDERED: ACETAMINOPHEN 325 MG TAB PO PRN (06:01)
[2022-08-01] MEDS ORDERED: QUEtiapine FUMARATE 25 MG TABLET PO PRN (06:01)
[2022-08-01] MEDS ORDERED: MELATONIN 3 MG TAB PO PRN (06:01)
[2022-08-01 06:42] LABS: Magnesium 2.7 mg/dl (1.7-2.4); Phosphorus 6.9 mg/dl (2.5-4.9)
[2022-08-01 08:02] LABS: Hematocrit (blood only) 38.3 % (42.0-52.0); Hemoglobin 12.7 g/dl (14.0-18.0); Mean Corpuscular Hgb Conc 33.2 g/dL (32.0-36.0); Mean Corpuscular Volume 87.4 fL (80.0-100.0); Mean Platelet Volume 12.1 fL (9.4-12.4); Nucleated RBC # (auto) 0.06 K/uL (0-0.12); Nucleated RBC % (auto) 0.5 %; Platelet Count 287 K/uL (130-400); RDW Coefficient of Variation 14.9 % (11.5-14.5); RDW Standard Deviation 47.5 fL (36.4-46.3); Red Blood Count 4.38 M/uL (4.70-6.10); White Blood Count 12.84 K/ul (4.8-10.8)
[2022-08-01 08:07] LABS: Albumin Globulin Ratio 1.4 (0.9-2); Albumin Level 3.3 gm/dl (3.4-5.0); Bilirubin,Total 1.5 mg/dl (0.2-1.0); Calcium 8.8 mg/dl (8.5-10.1); Creatinine Clr Calc Pharmacy 23.9 ml/min; Est GFR (African American) 23.7 ml/min; Est GFR (Non-African American) 20.5 ml/min; Globulin 2.4 gm/dl (2.5-4.0); Potassium 4.6 mmol/L (3.5-5.1); Total Protein 5.7 gm/dl (6.0-8.3)
[2022-08-01 08:15] LABS: Troponin I High Sensitivity 456.9 pg/ml (0-20)
--- NOTE | 2022-08-01 08:15 | CT Scan Report ---
ABDOMEN AND PELVIS CT WITHOUT CONTRAST CT DOSE: 1285.23 mGy.cm HISTORY: Acute sepsis UA, sepsis TECHNIQUE: Multiaxial CT images of the abdomen and pelvis were performed without contrast. A dose lo wering technique was utilized adhering to the principles of ALARA. COMPARISON STUDY: CT abdomen 10/20/2014 FINDINGS: Cardiomegaly with coronary arterial calcifications. Trace pericardial effusion. Trace pleur al effusions. Study is limited by respiratory motion artifact and patient positioning. Mild subsegmen mahendra bibasilar atelectasis. No pneumatosis or pneumoperitoneum. The unenhanced spleen is unremarkable with indeterminate 9 mm hypodense lesion noted along its superi or margin, favored to be benign. Mildly atrophic pancreas. The adrenal glands are within normal limit s. Cholelithiasis without CT evidence of acute cholecystitis. There is questioned marginal nodularity of the liver. No hepatic mass identified. Cortical thinning of the kidneys. Bilateral simple cysts of the kidneys. Complex 2.6 cm cyst within t he inferior pole right kidney, previously 1.4 cm. Nonspecific bilateral perinephric stranding. No uro lith or hydronephrosis. Decompressed or bladder with wall thickening. Prostamegaly. Left greater than right fat filled inguinal hernias. Atherosclerosis of the aorta with ectasia the infrarenal segment measuring up to 2.9 x 2.8 cm. No lymphadenopathy identified. Mild nonspecific distal esophageal wall thickening. Colonic diverticulosis. Retained enteric contrast within the large bowel. No bowel obstru ction or bowel wall thickening. Noninflamed appendix. Small volume of abdominopelvic ascites with bod y wall edema. Degenerative changes of the spine, pelvis and hips. IMPRESSION: 1. Prostamegaly with urinary bladder wall thickening suggestive of chronic bladder outlet obstruction . Correlate with urinalysis to exclude cystitis. 2. No urolith or hydronephrosis. 3. Cardiomegaly with fluid overload manifested by trace pericardial and pleural effusions along with body wall edema and small volume of abdominal pelvic ascites. 4. No bowel obstruction or bowel wall thickening. 5. Colonic diverticulosis. ACT 112: Negative or not required by law. The above report was generated using voice recognition software. It may contain grammatical, syntax o r spelling errors. Electronically signed by: Kurt Mera M.D. 08/01/2022 8:13 AM
[2022-08-01] MEDS ORDERED: OLANZapine ZYDIS 5 MG ORALLY DIS. TAB PO ONE ×2 (08:19→18:00)
[2022-08-01] MEDS ORDERED: ALBUT/IPRATROP 3MG/0.5MG NEB 3 ML VIAL NEB PRN (08:23)
[2022-08-01 08:25] LABS: Basophils # (auto) 0.03 K/uL (0-0.2); Basophils % (auto) 0.2 %; Echinocytes 2+; Eosinophils # (auto) 0.03 K/uL (0-0.50); Eosinophils % (auto) 0.2 %; Immature Granulocytes # (auto) 0.06 K/uL (0.01-0.20); Immature Granulocytes % (auto) 0.5 %; Lymphocytes # (auto) 0.31 K/uL (1.2-3.4); Lymphocytes % (auto) 2.4 %; Monocytes # (auto) 0.34 K/uL (0.11-0.59); Monocytes % (auto) 2.6 %; Neutrophils # (auto) 12.07 K/uL (1.40-6.50); Neutrophils % (auto) 94.1 %; Polychromasia 1+
--- NOTE | 2022-08-01 08:39 | XRay Report ---
XR chest 1V portable CLINICAL HISTORY: Dyspnea TECHNIQUE: Single frontal radiograph of the chest was obtained. Comparison: Comparison is made to chest radiograph 07/20/2017 FINDINGS: No lines and tubes are seen. Cardiomegaly is noted. Emphysematous changes are seen without evidence o f pneumonia. Suggestion of some postsurgical changes at the right upper lung. No evidence of pleural effusion or pneumothorax. IMPRESSION: Emphysema without acute abnormality such as pneumonia. ACT 112: Negative or not required by law. Electronically signed by: Isrrael Carvajal M.D. 08/01/2022 8:36 AM
[2022-08-01] MEDS ORDERED: APIXABAN 5 MG TABLET PO SCH (09:00)
[2022-08-01] MEDS ORDERED: FAMOTIDINE 20 MG TAB PO SCH (09:00)
[2022-08-01] MEDS ORDERED: NON-FORMULARY MEDICATION (Fluticasone-Umeclidin-Vilanter [Trelegy Ellipta] 100-62.5-25 mcg INH SCH (09:00)
[2022-08-01] MEDS ORDERED: FLUTICASONE FUROATE 100MCG 14 PUFFS/INHALER INH SCH (09:00)
[2022-08-01] MEDS: UMECLIDINIUM/VILANTEROL 62.5/25MCG 7 PUFFS/INHALER INH SCH (10:16)
[2022-08-01] MEDS: COLCHICINE 0.6 MG TAB PO SCH (10:17)
[2022-08-01] MEDS: ASPIRIN 81 MG ECTAB PO SCH (10:17)
[2022-08-01] MEDS: METOPROLOL SUCC 50MG EXT REL TAB PO SCH (10:18)
[2022-08-01] MEDS: DOCUSATE SODIUM 100 MG CAP PO SCH ×2 (10:18→21:17)
[2022-08-01] MEDS: FUROSEMIDE 40 MG/4 ML VIAL IV SCH (10:18)
[2022-08-01] MEDS: PIPERACILLIN/TAZOBACTAM 3.375 GM in DEXTROSE 5% 100 ML IV SCH ×2 (10:24→17:56)
--- NOTE | 2022-08-01 10:55 | Electrocardiogram Report ---
Test Reason : Blood Pressure : / mmHG Vent. Rate : 060 BPM Atrial Rate : 060 BPM P-R Int : 214 ms QRS Dur : 160 ms QT Int : 530 ms P-R-T Axes : 076 -81 077 degrees QTc Int : 530 ms Sinus rhythm with 1st degree A-V block with occasional Premature ventricular complexes Left axis deviation Right bundle branch block Inferior infarct (cited on or before 20-JUL-2017) Abnormal ECG When compared with ECG of 21-JUL-2017 07:23, Premature ventricular complexes are now Present Premature atrial complexes are no longer Present Confirmed by Andrew Aparicio ([id number]) on 08/01/2022 10:55:38 AM Referred By: [facility] Confirmed By:Andrey Aparicio
[2022-08-01] MEDS: ALBUT/IPRATROP 3MG/0.5MG NEB 3 ML VIAL NEB SCH ×3 (10:57→20:15)
[2022-08-01] MEDS ORDERED: HALOPERIDOL LACTATE 5 MG/ML 1 ML VIAL IV STA (14:51)
[2022-08-01] MEDS ORDERED: diphenhydrAMINE 50 MG/ML VIAL IV ONE (14:58)
[2022-08-01] MEDS ORDERED: HALOPERIDOL LACTATE 5 MG/ML 1 ML VIAL IV PRN (15:14)
--- NOTE | 2022-08-01 15:20 | Hospitalist Progress Note ---
Date of Service August 01, 2022 Assessment & Plan (1) SOB (shortness of breath): Plan: Acute on chronic respiratory failure high risk Patient is delirious and not cooperating with treatment Chest x-ray is within normal limits. Pneumonia was ruled out for bronchitis likely Riddhi on antibiotic therapy Zosyn Aspiration precautions Scheduled bronchodilators intravenous steroids and mucolytic's continue long- acting inhalers for COPD Patient with metabolic encephalopathy likely from respiratory failure and bronchitis present on admission. (Also some concern for UA abnormal urine analysis pending culture) Continues on Zosyn therapy. Requirements of Haldol to prevent injury in the ER continue to follow - (2) PAF (paroxysmal atrial fibrillation): Plan: Chronic stable rate controlled. Patient anticoagulated on apixaban for recent diagnosis of acute PE Continue apixaban Continue metoprolol for rate control (3) Chronic systolic (congestive) heart failure: Plan: Chronic systolic heart failure stable at present time EF 25% last BNP elevated moderate risk due to decreased ejection fraction Lasix 40 mg IV daily Comments of heart failure and imaging really are suggestive of fluid overload likely anasarca which could be contributed to by the moderate protein malnutrition Acute elevated troponin concern for NSTEMI versus demand ischemia from illness, patient is on metoprolol, low-dose aspirin, currently not on statin repeat echocardiogram Chronic hypertension stable treated with metoprolol (4) Chronic kidney disease, stage 3: Plan: Chronic and disease seems to be stable Lasix 40 mg IV daily Admission and Anticipated Discharge Date Admission Date: August 01, 2022 Subjective Patient is confused oriented to person try to get out of bed. He is with mild to moderate respiratory distress with tachypnea and accessory muscle use. He is a coarse loose cough Physical Exam Physical Exam: Patient has coarse lungs decreased air movement expiratory wheezes and prolonged expiratory phase He delirious currently Results & Data Results & Data Vital Signs (Past 12 Hours) Vital Signs Temp Pulse Pulse Resp BP BP Pulse Ox 08/01/22 14:00 71 22 99 08/01/22 13:30 69 26 H 94 08/01/22 13:00 69 17 92 08/01/22 12:41 72 20 08/01/22 12:41 112/71 08/01/22 12:30 70 20 08/01/22 12:00 72 20 08/01/22 11:30 67 25 H 99 08/01/22 11:30 125/76 08/01/22 11:00 68 20 08/01/22 11:00 121/82 95 08/01/22 10:45 124/84 08/01/22 10:45 72 21 08/01/22 10:30 68 19 95 08/01/22 10:30 126/83 08/01/22 10:14 67 21 95 08/01/22 10:00 120/78 08/01/22 09:51 115/77 08/01/22 09:35 68 19 08/01/22 09:30 69 22 08/01/22 09:22 68 19 08/01/22 08:30 68 24 99 08/01/22 08:30 117/81 08/01/22 08:26 116/73 08/01/22 08:26 69 20 94 08/01/22 08:00 66 18 94 08/01/22 07:30 67 20 99 08/01/22 07:00 67 21 08/01/22 07:00 118/78 08/01/22 08:23 97.7 F 68 18 116/73 98 08/01/22 07:52 08/01/22 06:34 97.9 F 08/01/22 05:35 64 08/01/22 04:42 96.8 F L 08/01/22 05:33 97.3 F L 64 18 116/85 96 08/01/22 03:30 61 15 08/01/22 03:30 126/84 08/01/22 03:49 96.6 F L O2 Del Method O2 Flow Rate 08/01/22 14:00 Nasal Cannula 2 08/01/22 13:30 Nasal Cannula 2 08/01/22 13:00 Nasal Cannula 2 08/01/22 12:41 08/01/22 12:41 08/01/22 12:30 08/01/22 12:00 08/01/22 11:30 Nasal Cannula 2 08/01/22 11:30 08/01/22 11:00 08/01/22 11:00 Room Air 08/01/22 10:45 08/01/22 10:45 08/01/22 10:30 Room Air 08/01/22 10:30 08/01/22 10:14 Room Air 08/01/22 10:00 08/01/22 09:51 08/01/22 09:35 08/01/22 09:30 08/01/22 09:22 08/01/22 08:30 08/01/22 08:30 08/01/22 08:26 08/01/22 08:26 08/01/22 08:00 08/01/22 07:30 08/01/22 07:00 08/01/22 07:00 08/01/22 08:23 Room Air 08/01/22 07:52 Room Air 08/01/22 06:34 08/01/22 05:35 08/01/22 04:42 08/01/22 05:33 Room Air 08/01/22 03:30 08/01/22 03:30 08/01/22 03:49 Laboratory Results Reviewed CBC Reviewed PRP Reviewed lactic acid Reviewed troponin PG Care Time/CCT Total # of Minutes Spent Total Time Spent with Patient: Total time spent is greater than 50% in coordination of care (as documented) at patient's floor/unit and/or counseling patient: Coding Level of Care Code 95541 SUB INP/OBS CARE 3/50MIN Diagnoses SOB (shortness of breath) R06.02 PAF (paroxysmal atrial fibrillation) I48.0 Chronic systolic (congestive) heart failure I50.22 Chronic kidney disease, stage 3 N18.3
[2022-08-01] MEDS: methylPREDNISolone 40 MG in SYRINGE 0 ML IV SCH (15:34)
[2022-08-01] MEDS ORDERED: QUEtiapine FUMARATE 25 MG TABLET PO SCH ×2 (21:00)
[2022-08-01] MEDS: guaiFENesin 600 MG TABCR PO SCH (21:18)
[2022-08-02] MEDS ORDERED: OPTIRAY 320 500ml IV ONE (01:53)
[2022-08-02] MEDS ORDERED: Heparin IV Adult Wt-Based Standard WITH Bolus Protocol IV SCH (02:24)
[2022-08-02] MEDS: PIPERACILLIN/TAZOBACTAM 3.375 GM in DEXTROSE 5% 100 ML IV SCH ×3 (02:35→19:35)
[2022-08-02] MEDS: methylPREDNISolone 40 MG in SYRINGE 0 ML IV SCH ×2 (02:35→14:37)
[2022-08-02] MEDS ORDERED: HEPARIN SOD (PORCINE) 1000 UNIT/ML IV ONE (02:45)
--- NOTE | 2022-08-02 02:51 | Communication Note ---
Date of Service: August 02, 2022 Urgent message from nursing overnight in regard to patient having increased oxygen demand and appeared more restless. Patient need to be put on 8 L of sup plemental oxygen before oxygen saturation would go above 90%. This is a patient with known pulmonary emboli and was supposed to be on Eliquis for treatment. Upon my arrival, patient is in distress and trying to pull equipment off of his face including a pulse ox and the supplemental oxygen. Physical exam had lungs clear to auscultation. But due to increased oxygen demand, did order chest x-ray which returned without any acute process per my interpretation. For this reason, a chest CTA was ordered for concern for worsening pulmonary embolism or any other abnormality that did not show up on chest x-ray. Per my interpretation, I did notice pulmonary embolism without stat rad's report yet available. Nursing also brought up an increased troponin which is now at over 1200. Patient is unable to articulate whether or not he is having chest pain. Because of the reasons above, I made the decision to give a heparin bolus and start heparin drip for concern of OH versus worsening pulmonary embolism with heart strain. Patient was also placed on BiPAP and is currently saturating at 100%. We will continue to monitor.
[2022-08-02] MEDS: HEPARIN SODIUM/DEXTROSE 25,000 UNITS/500 ML BAG IV SCH ×2 (02:52→22:22)
[2022-08-02 03:13] LABS: Hematocrit (blood only) 36.6 % (42.0-52.0); Hemoglobin 11.9 g/dl (14.0-18.0); Mean Corpuscular Hemoglobin 28.7 pg (25.0-34.0); Mean Corpuscular Hgb Conc 32.5 g/dL (32.0-36.0); Mean Corpuscular Volume 88.2 fL (80.0-100.0); Mean Platelet Volume 11.3 fL (9.4-12.4); Nucleated RBC # (auto) 0.04 K/uL (0-0.12); Nucleated RBC % (auto) 0.2 %; Platelet Count 245 K/uL (130-400); RDW Coefficient of Variation 15.1 % (11.5-14.5); Red Blood Count 4.15 M/uL (4.70-6.10); White Blood Count 19.84 K/ul (4.8-10.8)
[2022-08-02 03:37] LABS: Basophils # (auto) 0.02 K/uL (0-0.2); Basophils % (auto) 0.1 %; Echinocytes 2+; Immature Granulocytes # (auto) 0.21 K/uL (0.01-0.20); Immature Granulocytes % (auto) 1.1 %; Lymphocytes % (auto) 2.5 %; Monocytes # (auto) 0.85 K/uL (0.11-0.59); Monocytes % (auto) 4.3 %; Neutrophils # (auto) 18.26 K/uL (1.40-6.50); Polychromasia 1+
[2022-08-02 03:45] LABS: INR 1.9 (0.9-1.1); Partial Thromboplastin Ratio 1.4; Partial Thromboplastin Time 39.2 Seconds (21.0-31.0); Prothrombin Time 19.9 Seconds (9.0-12.0)
--- NOTE | 2022-08-02 05:38 | CT Scan Report ---
Exam(s): CTA CHEST IV Amt: 111 ML OPTIRAY 320 EXAM: CT Angiography Chest With Intravenous Contrast CLINICAL HISTORY: Pulmonary embolus. TECHNIQUE: Axial computed tomographic angiography images of the chest with intravenous contrast. CTDI is 33.8 mGy and DLP is 16.9 mGy-cm. Automated exposure control was utilized for the study. A dose lowering technique was utilized adhering to the principles of ALARA. MIP reconstructed images were created and reviewed. COMPARISON: No relevant prior studies available. FINDINGS: Pulmonary arteries: Pulmonary emboli of the left lower lobe segmental arteries. Aorta: Mild atherosclerosis. No thoracic aortic aneurysm. Lungs: Unremarkable. No consolidation. Pleural space: Small bilateral pleural effusions. No pneumothorax. Heart: Unremarkable. No cardiomegaly. No significant pericardial effusion. No evidence of RV dysfunction. Bones/joints: There are degenerative changes of the spine. No fracture. Soft tissues: Unremarkable. Lymph nodes: Unremarkable. No enlarged lymph nodes. IMPRESSION: 1. Pulmonary emboli of the left lower lobe segmental arteries. 2. No consolidation. 3. Small bilateral pleural effusions. Communications: Call Doctor Pulmonary Embolism Electronically signed by: Ирина Chávez MD 08/02/22 05:37 AM
[2022-08-02 06:46] LABS: Appearance Urine Cloudy (Clear); Bilirubin Urine Negative (Negative); Blood Urine 1+ (Negative); Color Urine Yellow; Glucose Urine UA Negative (Negative); Ketones Urine Negative (Negative); Leukocyte Esterase Urine 3+ (Negative); Nitrite Urine Negative (Negative); Protein Urine Negative (Negative); RBC Urine Automated 0-4 /hpf (0-4); Specific Gravity Urine 1.025 (1.000-1.030); Urobilinogen Urine Negative (Negative); WBC Urine Automated >30 /hpf (0-5)
[2022-08-02 07:06] LABS: Bacteria Urine Automated 1+ (Negative)
[2022-08-02] MEDS: ALBUT/IPRATROP 3MG/0.5MG NEB 3 ML VIAL NEB SCH ×3 (07:29→14:52)
[2022-08-02] MEDS ORDERED: PERFLUTREN LIPID MICROSPHERE (DEFINITY) IV ONE (08:11)
[2022-08-02] MEDS: FUROSEMIDE 40 MG/4 ML VIAL IV SCH (08:43)
--- NOTE | 2022-08-02 08:50 | XRay Report ---
SINGLE VIEW CHEST CLINICAL HISTORY: Dyspnea. FINDINGS: 2 AP, portable, upright chest radiographs are compared to study performed earlier the same day 08/01/2022. The examination is degraded by portable technique and apical lordotic positioning. The heart is enlarged noting atherosclerotic calcification of the thoracic aorta. The pulmonary vasculat ure is noncongested. There is herniation of the right lung through a right sided rib defect. Emphysem a and chronic interstitial thickening is similar to previous. Foci of parenchymal scarring are seen t hroughout both lungs. Additional scarring/atelectasis is noted at both lung bases. No airspace consol idation or large pleural effusion is identified. No pneumothorax is seen. The skeletal structures are osteopenic. There is chronic deformity of the right-sided ribs. IMPRESSION: 1. Cardiomegaly and emphysema with no acute cardiopulmonary abnormality identified. 2. There is herniation of the right lung through a right sided rib defect. ACT 112: Negative or not required by law. Electronically signed by: Daniel Sanchez M.D. 08/02/2022 8:48 AM
--- NOTE | 2022-08-02 09:12 | XCELERA ---
[id number] \\[id number]
[2022-08-02 09:34] LABS: Base Excess ABG -6.6 mEq/L (-9-1.8); HCO3 ABG 17 mmol/L (19-24); Oxygen Saturation ABG 99.8 % (90-95); PCO2 ABG 29 mmHg (35-46); PO2 ABG 157 mmHg (80-95); pH ABG 7.38 (7.35-7.45)
[2022-08-02 09:35] LABS: Allen Test Pos (Pos)
[2022-08-02 09:50] LABS: Albumin Level 3.3 gm/dl (3.4-5.0); Bilirubin Direct 0.6 mg/dl (0-0.2); Bilirubin,Total 1.4 mg/dl (0.2-1.0); Calcium 8.4 mg/dl (8.6-10.3); Creatinine Clr Calc Pharmacy 21.6 ml/min; Est GFR (African American) 18.4 ml/min; Est GFR (Non-African American) 15.8 ml/min; Potassium 4.7 mmol/L (3.5-5.1); Total Protein 5.6 gm/dl (6.0-8.3)
[2022-08-02 09:58] LABS: Troponin I High Sensitivity 1709.1 pg/ml (0-20)
[2022-08-02 10:08] LABS: BUN Creatinine Ratio 41.7 (10-20)
[2022-08-02] MEDS: METOPROLOL SUCC 50MG EXT REL TAB PO SCH (11:03)
[2022-08-02] MEDS: COLCHICINE 0.6 MG TAB PO SCH (11:03)
[2022-08-02] MEDS: ASPIRIN 81 MG ECTAB PO SCH (11:03)
[2022-08-02] MEDS: DOCUSATE SODIUM 100 MG CAP PO SCH (11:03)
[2022-08-02] MEDS: guaiFENesin 600 MG TABCR PO SCH (11:03)
[2022-08-02] MEDS: UMECLIDINIUM/VILANTEROL 62.5/25MCG 7 PUFFS/INHALER INH SCH (11:03)
[2022-08-02] MEDS ORDERED: ACETAMINOPHEN 1,000 MG/100 ML VIAL IV PRN (13:06)
--- NOTE | 2022-08-02 14:29 | Cardiology Consultation ---
Date of Consultation August 02, 2022 Assessment & Plan (1) SOB (shortness of breath): -multifactorial in origin. -being treated for a COPD exacerbation. -receiving intravenous Lasix for possible mild CHF. (2) CAD (coronary artery disease): -remote history of an inferior myocardial infarction, 2008. -continue medical management. (3) Ischemic cardiomyopathy: -left ventricular ejection fraction of 20%. -failed a trial of Entresto previously due to side effects. -agree with metoprolol succinate -agree with intravenous Lasix. (4) Chronic systolic (congestive) heart failure: -continue medical management as above. History of Present Illness Attending Physician: Parminder Rodrigues MD History of Present Illness Mr. Robb is an 82-year-old male admitted yesterday with respiratory failure. This consultation was ordered to assist in his cardiac management. Of note, the patient is well known to me from the outpatient setting. The patient's recent history began on July 24 when he was admitted to the [facility] with sepsis from a urinary source. He had evidence of acute renal failure and was found to have a pulmonary embolism and started on Eliquis. He had several episodes of nonsustained ventricular tachycardia. Echocardiogram noted severe left ventricular dysfunction with ejection fraction 20-25%, global hypokinesis, mild aortic insufficiency, and moderate mitral regurgitation. As he was doing poorly, he was seen by palliative care and made a DNR. He was transferred to a rehabilitation facility, however, was sent to our institution after 1 day due to concerns over shortness of breath. Records from those institutions were personally reviewed. History is unobtainable as the patient is currently on a BiPAP mask and is disoriented. He is restrained in bed. He does carry a history of coronary artery disease having suffered inferior CT in 2008. This resulted in an ischemic cardiomyopathy and chronic systolic CHF. He also carries a history of paroxysmal atrial fibrillation, however, refused anticoagulation until started on Eliquis for his recent pulmonary embolism. He has been seen in our CHF clinic. A trial of Entresto was undertaken, however, that medication was discontinued due to side effects. He has also been intolerant to beta-blockers until recently. Patient is resting in bed. Past medical and surgical history 1. Coronary artery disease-see above 2. Ischemic cardiomyopathy 3. Chronic systolic CHF 4. Paroxysmal atrial fibrillation 5. Mild aortic insufficiency 6. Moderate mitral regurgitation 7. COPD 8. Chronic renal failure 9. GERD 10. Lumbar spinal stenosis 11. Gout 12. DJD 13. Right partial lobectomy secondary to an abscess Social history Single, lives alone Quit tobacco in 1999, 40 pack year history Occasional alcohol Family history Noncontributory Review of systems Unobtainable Allergies Allergy/AdvReac Type Severity Reaction Status Date / Time atorvastatin Allergy Unknown Unverified 08/01/22 02:51 carvedilol Allergy arthralgia Unverified 08/01/22 02:51 gabapentin Allergy Unknown Unverified 08/01/22 02:51 morphine Allergy Unknown Verified 08/01/22 02:51 rofecoxib Allergy Unknown Verified 08/01/22 02:51 Home Medications Medication Instructions Recorded Confirmed Type aspirin 81 mg tablet,delayed 81 mg PO DAILY #90 tabs 11/05/18 08/01/22 Rx release metoprolol succinate 50 mg capsule 50 mg PO DAILY #90 ea 05/16/22 08/01/22 Rx sprinkle, ext. release 24 hr albuterol sulfate 90 mcg/actuation 2 puff inhalation Q4 PRN Wheezing 08/01/22 08/01/22 History aerosol inhaler apixaban 5 mg tablet 5 mg PO Q12 start 08/03/22 08/01/22 08/01/22 History apixaban 5 mg tablet 10 mg PO Q12 08/01/22 08/01/22 History colchicine 0.6 mg tablet (Colcrys) 0.3 mg PO DAILY 08/01/22 08/01/22 History docusate sodium 100 mg capsule 100 mg PO BID 08/01/22 08/01/22 History famotidine 20 mg tablet 20 mg PO Q OTHER DAY 08/01/22 08/01/22 History fluticasone fur. 100 mcg-umeclid 1 inh inhalation DAILY 08/01/22 08/01/22 History 62.5 mcg-vilant 25 mcg inhalat.powder (Trelegy Ellipta) melatonin 3 mg tablet 6 mg PO HS PRN Insomnia 08/01/22 08/01/22 History ondansetron 4 mg disintegrating 4 mg PO Q4 PRN nausea or vomiting 08/01/22 08/01/22 History tablet quetiapine 25 mg tablet (Seroquel) 25 mg PO HS PRN Anxiety 08/01/22 08/01/22 History sodium zirconium cyclosilicate 5 5 g PO QDL 08/01/22 08/01/22 History gram oral powder packet Patient History Medical History Atherosclerotic heart disease Benign essential hypertension Chronic kidney disease, stage 3 COPD (chronic obstructive pulmonary disease) Dyslipidemia Enlarged prostate without lower urinary tract symptoms (luts) History of esophageal reflux HLD (hyperlipidemia) Lumbar canal stenosis Lumbar disc herniation Osteoporosis Renal cyst Sepsis Smokeless tobacco use Surgical History History of cataract surgery bilateral History of lobectomy of lung right side upper lobe noncancerous Family History Family/Other Diabetes Father Stroke Brother Myocardial infarction Mother , at a young age Cancer Denies family history of Ovarian cancer Prostate cancer Breast cancer Colorectal cancer Social History Smoking Status: Former smoker Tobacco Type: Cigarettes Age Started Using Tobacco: 17; Age Quit Using Tobacco: 57; packs per day: 1; Second Hand Exposure: No; Hx Alcohol Use: Yes Alcohol type: hard liquor Alcohol type Comment: whiskey Hx Substance Use: No Preferred Language: Serbian Communication Ability: Effective Visual Impairment: Partially Limited Hearing Ability: Normal Flow Manager Required: No Beliefs That Will Affect Care: Church marital status: Current Living Situation: Alone current occupational status: employed and retired 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 HEENT exam is negative. Neck is supple with full carotid upstrokes. There are no carotid bruits. Jugular venous pressure is difficult to assess.. There is no thyromegaly. Cardiovascular exam reveals a regular rhythm with distant heart sounds. No obvious murmur. No S3. Lungs note coarse breath sounds throughout. No rales. Abdomen is obese without bruits. Extremities reveal intact radial artery and posterior tibial pulses bilaterally. Trace pretibial edema is noted. Results & Data Vital Signs (Past 12 Hours) Vital Signs Temp Pulse Pulse Pulse Resp BP Pulse Ox 08/02/22 13:00 08/02/22 11:11 36.5 C 78 24 126/71 95 08/02/22 07:44 83 19 97 08/02/22 07:44 71 19 97 08/02/22 07:26 36.3 C L 69 20 118/75 98 08/02/22 03:04 36.7 C 72 18 123/80 97 O2 Del Method O2 Flow Rate FiO2 08/02/22 13:00 Nasal Cannula 5 08/02/22 11:11 High Flow Nasal Cannula 7 08/02/22 07:44 35 08/02/22 07:44 BiPAP 35 08/02/22 07:26 BiPAP 08/02/22 03:04 BiPAP Laboratory Results Initial high sensitivity troponin was 456.9 with follow-up values of 792.9 and 1251.8. BNP is greater than 4700. Diagnostic Findings quality assurance monitor body notes sinus rhythm with frequent PVCs. PG Care Time/CCT Total # of Minutes Spent Total Time Spent with Patient: Total time spent is greater than 50% in coordination of care (as documented) at patient's floor/unit and/or counseling patient: Coding Level of Care Code 34965 INT INP/OBS CARE 3/75MIN Diagnoses SOB (shortness of breath) R06.02 CAD (coronary artery disease) I25.10 Ischemic cardiomyopathy I25.5 Chronic systolic (congestive) heart failure I50.22
[2022-08-02] MEDS: METOPROLOL TARTRATE 1 MG/ML VIAL IV SCH ×4 (14:37→19:35)
[2022-08-02 15:30] LABS: Partial Thromboplastin Ratio > 5.1
[2022-08-02 15:59] LABS: Partial Thromboplastin Time > 139.0 Seconds (21.0-31.0)
--- NOTE | 2022-08-02 17:26 | Hospitalist Progress Note ---
Date of Service August 02, 2022 Assessment & Plan (1) SOB (shortness of breath): Plan: Acute on chronic respiratory failure high risk Patient is delirious and not cooperating with treatment Chest x-ray is within normal limits. Pneumonia was ruled out for bronchitis likely Riddhi on antibiotic therapy Zosyn Aspiration precautions Scheduled bronchodilators intravenous steroids and mucolytic's continue long- acting inhalers for COPD acute delirium from illness high risk Patient with metabolic encephalopathy likely from respiratory failure and bronchitis present on admission. (Also some concern for UA abnormal urine analysis pending culture) Continues on Zosyn therapy. Requirements of Haldol/Ativan and physical restraints to prevent injury - chronic unstable PE poa, transition to heparin for nstemi and PE, now with persistently prolongued PTT (2) PAF (paroxysmal atrial fibrillation): Plan: Chronic stable rate controlled. Patient anticoagulated on apixaban for recent diagnosis of acute PE overnight had decompensation and concern for med recc with omission of apixiban, started on heparin but markedly prolongued supratherapuetic PTT, now on hold Continue metoprolol for rate control (3) Chronic systolic (congestive) heart failure: Plan: Chronic systolic heart failure stable at present time EF 25% last BNP elevated moderate risk due to decreased ejection fraction Lasix 40 mg IV daily Comments of heart failure and imaging really are suggestive of fluid overload likely anasarca which could be contributed to by the moderate protein malnutrition Acute elevated troponin concern for NSTEMI versus demand ischemia from illness, patient is on metoprolol, low-dose aspirin, currently not on statin repeat echocardiogram confirms CSHF EF 20%, failed Entresto in the past. Chronic hypertension stable treated with metoprolol (4) Chronic kidney disease, stage 3: Plan: Chronic and disease seems to be stable Lasix 40 mg IV daily Admission and Anticipated Discharge Date Admission Date: August 01, 2022 Subjective Patient is confused oriented to person try to get out of bed. He is with mild to moderate respiratory distress with tachypnea and accessory muscle use. He is a coarse loose cough bleeding due to supratherapeutic PTT daughter at bedside and updated Physical Exam Physical Exam: Patient has coarse lungs decreased air movement expiratory wheezes and prolonged expiratory phase He delirious currently ripping off oxygen Results & Data Results & Data Vital Signs (Past 12 Hours) Vital Signs Temp Pulse Pulse Pulse Resp BP Pulse Ox 03/22/23 16:28 74 19 102/71 92 08/02/22 14:52 72 20 100 08/02/22 08:30 08/02/22 13:00 08/02/22 14:37 84 08/02/22 11:11 97.7 F 78 24 126/71 95 08/02/22 07:44 83 19 97 08/02/22 07:44 71 19 97 08/02/22 07:26 97.3 F L 69 20 118/75 98 O2 Del Method O2 Flow Rate FiO2 08/02/22 16:28 Nasal Cannula 3 08/02/22 14:52 Nasal Cannula 5 08/02/22 08:30 BiPAP 08/02/22 13:00 Nasal Cannula 5 08/02/22 14:37 08/02/22 11:11 High Flow Nasal Cannula 7 08/02/22 07:44 35 08/02/22 07:44 BiPAP 35 08/02/22 07:26 BiPAP Laboratory Results review cbc review prp review PTT reviewed troponin PG Care Time/CCT Total # of Minutes Spent Total Time Spent with Patient: Total time spent is greater than 50% in coordination of care (as documented) at patient's floor/unit and/or counseling patient: Coding Level of Care Code 39612 SUB INP/OBS CARE 3/50MIN Diagnoses SOB (shortness of breath) R06.02 PAF (paroxysmal atrial fibrillation) I48.0 Chronic systolic (congestive) heart failure I50.22 Chronic kidney disease, stage 3 N18.3
[2022-08-02] MEDS ORDERED: Nursing to Pharmacy Communication SCH ×2 (17:30→21:30)
[2022-08-02] MEDS: LORazepam 2 MG/1 ML VIAL IV PRN (17:38)
[2022-08-02 20:47] LABS: Partial Thromboplastin Ratio 1.2; Partial Thromboplastin Time 33.7 Seconds (21.0-31.0)
[2022-08-02] MEDS: FAMOTIDINE 20 MG in SYRINGE 3 ML IV SCH (21:08)
[2022-08-02] MEDS ORDERED: Heparin IVP from UFH Protocol (WITH Bolus) IV ONE (22:00)
[2022-08-03] MEDS: METOPROLOL TARTRATE 1 MG/ML VIAL IV SCH ×6 (00:11→20:59)
[2022-08-03] MEDS: PIPERACILLIN/TAZOBACTAM 3.375 GM in DEXTROSE 5% 100 ML IV SCH ×3 (01:56→17:57)
[2022-08-03] MEDS: methylPREDNISolone 40 MG in SYRINGE 0 ML IV SCH (03:50)
[2022-08-03] MEDS ORDERED: HEPARIN SODIUM/DEXTROSE 25,000 UNITS/500 ML BAG IV SCH (06:00)
[2022-08-03 06:59] LABS: Partial Thromboplastin Ratio > 5.1
[2022-08-03 07:07] LABS: Partial Thromboplastin Time > 139.0 Seconds (21.0-31.0)
[2022-08-03] MEDS: ASPIRIN 81 MG ECTAB PO SCH (07:58)
[2022-08-03] MEDS: LORazepam 2 MG/1 ML VIAL IV PRN (07:58)
[2022-08-03] MEDS: FUROSEMIDE 40 MG/4 ML VIAL IV SCH (07:59)
[2022-08-03] MEDS: UMECLIDINIUM/VILANTEROL 62.5/25MCG 7 PUFFS/INHALER INH SCH (07:59)
[2022-08-03] MEDS: FAMOTIDINE 20 MG in SYRINGE 3 ML IV SCH ×2 (07:59→21:00)
[2022-08-03 08:58] LABS: Hematocrit (blood only) 33.2 % (42.0-52.0); Hemoglobin 10.6 g/dl (14.0-18.0); Mean Corpuscular Hemoglobin 29.1 pg (25.0-34.0); Mean Corpuscular Hgb Conc 31.9 g/dL (32.0-36.0); Mean Corpuscular Volume 91.2 fL (80.0-100.0); Nucleated RBC # (auto) 0.08 K/uL (0-0.12); Nucleated RBC % (auto) 0.3 %; Platelet Count 279 K/uL (130-400); RDW Coefficient of Variation 15.5 % (11.5-14.5); RDW Standard Deviation 51.1 fL (36.4-46.3); Red Blood Count 3.64 M/uL (4.70-6.10)
[2022-08-03] MEDS ORDERED: APIXABAN 5 MG TABLET PO SCH (09:00)
[2022-08-03 09:04] LABS: Partial Thromboplastin Ratio 3.7
[2022-08-03 09:08] LABS: Partial Thromboplastin Time 101.8 Seconds (21.0-31.0)
[2022-08-03 09:18] LABS: Basophils # (auto) 0.03 K/uL (0-0.2); Basophils % (auto) 0.1 %; Echinocytes 3+; Eosinophils # (auto) 0.01 K/uL (0-0.50); Immature Granulocytes # (auto) 0.47 K/uL (0.01-0.20); Lymphocytes # (auto) 0.38 K/uL (1.2-3.4); Lymphocytes % (auto) 1.6 %; Monocytes # (auto) 1.12 K/uL (0.11-0.59); Monocytes % (auto) 4.7 %; Neutrophils # (auto) 21.99 K/uL (1.40-6.50); Neutrophils % (auto) 91.6 %; Polychromasia 1+
[2022-08-03 09:34] LABS: Albumin Globulin Ratio 1.5 (0.9-2); Albumin Level 3.4 gm/dl (3.4-5.0); BUN Creatinine Ratio 46.6 (10-20); Bilirubin,Total 1.3 mg/dl (0.2-1.0); Calcium 8.2 mg/dl (8.6-10.3); Creatinine Clr Calc Pharmacy 20.2 ml/min; Est GFR (African American) 17.1 ml/min; Est GFR (Non-African American) 14.8 ml/min; Globulin 2.2 gm/dl (2.5-4.0); Potassium 4.8 mmol/L (3.5-5.1); Total Protein 5.6 gm/dl (6.0-8.3)
[2022-08-03] MEDS ORDERED: SODIUM CHLORIDE 0.9% 1000ML 1,000 ML IV SCH (10:59)
[2022-08-03 11:38] LABS: Allen Test Pos (Pos); Base Excess ABG -8.1 mEq/L (-9-1.8); HCO3 ABG 20 mmol/L (19-24); Oxygen Saturation ABG < 60.0 % (90-95); PCO2 ABG 50 mmHg (35-46); PO2 ABG 28 mmHg (80-95); pH ABG 7.21 (7.35-7.45)
--- NOTE | 2022-08-03 11:44 | Hospitalist Progress Note ---
Date of Service August 03, 2022 Assessment & Plan (1) Sepsis: Plan: 82 yo male who waas recently hospitalized at [facility] for urosepsis. Given his lack of response, will hold further diuretics. Will give IVF, as lactic acid was elevated. will add dapto to his zosyn as well as fluconazole. There is a concern patient may be going into DIC Fibrinogen is normal, will recheck tomorrow. awaiting fibrinogen will consult nephro, patient had ATN at [facility]. Patient's mentation over at [facility] improved, howver, patient would remain pleasantly confused as he would talk about fishing. Patient's creatinine at discharge form [facility] was 2.5 updated family. will see if patient improves over next 48 hours. Son states patient prior to this hospital stay was not interested in dialysis (2) SOB (shortness of breath): Plan: Acute on chronic respiratory failure high risk Patient is delirious and not cooperating with treatment Chest x-ray is within normal limits. Pneumonia was ruled out for bronchitis likely Riddhi on antibiotic therapy Zosyn Aspiration precautions Scheduled bronchodilators intravenous steroids and mucolytic's continue long- acting inhalers for COPD acute delirium from illness high risk Patient with metabolic encephalopathy likely from respiratory failure and bronchitis present on admission. (Also some concern for UA abnormal urine analysis pending culture) Continues on Zosyn therapy. Requirements of Haldol/Ativan and physical restraints to prevent injury - chronic unstable PE poa, transition to heparin for nstemi and PE, now with persistently prolongued PTT currently holding heparin. (3) PAF (paroxysmal atrial fibrillation): Plan: Chronic stable rate controlled. Patient anticoagulated on apixaban for recent diagnosis of acute PE overnight had decompensation and concern for med recc with omission of apixiban, started on heparin but markedly prolongued supratherapuetic PTT, now on hold Continue metoprolol for rate control (4) Chronic systolic (congestive) heart failure: Plan: Chronic systolic heart failure stable at present time EF 25% last BNP elevated moderate risk due to decreased ejection fraction Lasix 40 mg IV daily (held on 08/03) Comments of heart failure and imaging really are suggestive of fluid overload likely anasarca which could be contributed to by the moderate protein malnutrition Acute elevated troponin concern for NSTEMI versus demand ischemia from illness, patient is on metoprolol, low-dose aspirin, currently not on statin repeat echocardiogram confirms CSHF EF 20%, failed Entresto in the past. Chronic hypertension stable treated with metoprolol (5) Chronic kidney disease, stage 3: Plan: Chronic and disease seems to be stable Lasix 40 mg IV daily Admission and Anticipated Discharge Date Admission Date: August 01, 2022 Subjective Patient is unresponsive. Review of Systems Review of Systems: All systems reviewed & are unremarkable except as noted in HPI & below Physical Exam Physical Exam: Patient is resting comfortably but is lethargic. Responsive to painful stimuli. lungs appear clear heart rate is not tachycardic Results & Data Results & Data Vital Signs (Past 12 Hours) Vital Signs Temp Pulse Pulse Resp BP BP Pulse Ox 08/03/22 08:00 71 08/03/22 08:00 08/03/22 07:59 73 08/03/22 06:56 36.4 C L 77 20 112/71 99 08/03/22 04:04 36.4 C L 73 14 122/77 98 08/03/22 01:17 73 08/03/22 00:17 36.4 C 08/03/22 00:11 76 113/85 08/02/22 23:59 75 16 113/85 99 O2 Del Method O2 Flow Rate 08/03/22 08:00 08/03/22 08:00 Nasal Cannula 3 08/03/22 07:59 08/03/22 06:56 Nasal Cannula 3 08/03/22 04:04 Nasal Cannula 3 08/03/22 01:17 08/03/22 00:17 08/03/22 00:11 08/02/22 23:59 Nasal Cannula 3 PG Care Time/CCT Total # of Minutes Spent Total Time Spent with Patient: Total time spent is greater than 50% in coordination of care (as documented) at patient's floor/unit and/or counseling patient: Prolonged Care Time Prolonged Care Time: Yes Total Prolonged Care Time: 180 10am -1pm included family discussion, discussing case with previous hospitalist, calling [facility], reviewing chart, disccusing with specialists Coding Level of Care Code 38804 SUB INP/OBS CARE 3/50MIN (25 - SIGNIFICANT, SEPARATELY IDENTIFIABLE ) Diagnoses Sepsis A41.9 SOB (shortness of breath) R06.02 PAF (paroxysmal atrial fibrillation) I48.0 Chronic systolic (congestive) heart failure I50.22 Chronic kidney disease, stage 3 N18.3 Additional Codes Prolonged Care Time - Prolonged Care Time: Yes ([id number])
[2022-08-03] MEDS ORDERED: DAPTOmycin 475 MG in SYRINGE 0 ML IV SCH (11:45)
[2022-08-03 11:52] LABS: Albumin Level 3.4 gm/dl (3.4-5.0); Bilirubin Direct 0.6 mg/dl (0-0.2); Bilirubin,Total 1.2 mg/dl (0.2-1.0); C Reactive Protein 2.44 mg/dl (0-0.5); Total Protein 5.6 gm/dl (6.0-8.3)
[2022-08-03 12:22] LABS: Fibrinogen 261 mg/dl (184-400)
[2022-08-03 12:25] LABS: D Dimer 1740 ug/L FEU (0-500)
[2022-08-03] MEDS ORDERED: FLUCONAZOLE 200 MG/100 ML BAG IV ONE (12:30)
--- NOTE | 2022-08-03 12:45 | Nephrology Consultation ---
Date of Consultation August 03, 2022 Assessment & Plan (1) Acute kidney injury: * VICTORIANO likely due to combination of contrast induced nephropathy, dehydration and reduced LVEF related to PE * 08/02/22 Urine microscopy was negative for ATN casts * 08/01/[address] was negative for obstruction/hydronephrosis * Will have Rajput catheter placed * Continue gentle hydration with Normosol at 80 cc/hr * Monitor PRP, UO * Discussed medical presentation and POC w/ patient's son Rodri and Dr. Finch this afternoon. Rodri understands the seriousness of his father's illness. 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 Rodri indicated that his father would not want escalation of care. He would not want dialysis. He is agreeable to co nservative medical management and transition to comfort measures if his father's condition worsens (2) CKD stage G3b/A1, GFR 30-44 and albumin creatinine ratio <30 mg/g: * Baseline Cr 1.7 (3) Ischemic cardiomyopathy: * Marked elevation of troponin * Echocardiogram now shows LVEF 15-20% History of Present Illness Reason for Consultation: Oliguric VICTORIANO/CKD Attending Physician: Uvaldo Finch History of Present Illness Mr. Robb is an 82 year old male who is seen at the request of the hospitalist service for VICTORIANO/CKD. Patient is currently unable to provide any medical history. Information for the HPI is obtained from the EMR and is summarized as follows: Mr. Robb has CKD stage G3b (moderate impairment). Baseline Cr 1.7 w/ EGFR 37 cc/min. He has not undergone Nephrology evaluation in the past. His medical history is significant for ICM w/ LVEF 25-30% managed in the [facility], atrial fibrillation, HTN, COPD, BPH. Mr. Robb was recently hospitalized at [facility] due to UTI w/ sepsis, multiorgan failure and bilateral PE. He was discharged to rehab but developed respiratory distress and transferred to [facility] 08/01/21 for evaluation. Admission Cr was 2.8. On 08/02/22 patient required chest CTA due to progressive respiratory distress. PE to LLL segmental arteries were demonstrated. Patient is now oliguric and Cr has risen to 3.65. Allergies Allergy/AdvReac Type Severity Reaction Status Date / Time atorvastatin Allergy Unknown Unverified 08/01/22 02:51 carvedilol Allergy arthralgia Unverified 08/01/22 02:51 gabapentin Allergy Unknown Unverified 08/01/22 02:51 morphine Allergy Unknown Verified 08/01/22 02:51 rofecoxib Allergy Unknown Verified 08/01/22 02:51 Home Medications Medication Instructions Recorded Confirmed Type aspirin 81 mg tablet,delayed 81 mg PO DAILY #90 tabs 11/05/18 08/01/22 Rx release metoprolol succinate 50 mg capsule 50 mg PO DAILY #90 ea 05/16/22 08/01/22 Rx sprinkle, ext. release 24 hr albuterol sulfate 90 mcg/actuation 2 puff inhalation Q4 PRN Wheezing 08/01/22 08/01/22 History aerosol inhaler apixaban 5 mg tablet 5 mg PO Q12 start 08/03/22 08/01/22 08/01/22 History apixaban 5 mg tablet 10 mg PO Q12 08/01/22 08/01/22 History colchicine 0.6 mg tablet (Colcrys) 0.3 mg PO DAILY 08/01/22 08/01/22 History docusate sodium 100 mg capsule 100 mg PO BID 08/01/22 08/01/22 History famotidine 20 mg tablet 20 mg PO Q OTHER DAY 08/01/22 08/01/22 History fluticasone fur. 100 mcg-umeclid 1 inh inhalation DAILY 08/01/22 08/01/22 History 62.5 mcg-vilant 25 mcg inhalat.powder (Trelegy Ellipta) melatonin 3 mg tablet 6 mg PO HS PRN Insomnia 08/01/22 08/01/22 History ondansetron 4 mg disintegrating 4 mg PO Q4 PRN nausea or vomiting 08/01/22 08/01/22 History tablet quetiapine 25 mg tablet (Seroquel) 25 mg PO HS PRN Anxiety 08/01/22 08/01/22 History sodium zirconium cyclosilicate 5 5 g PO QDL 08/01/22 08/01/22 History gram oral powder packet Patient History Medical History Atherosclerotic heart disease Benign essential hypertension Chronic kidney disease, stage 3 COPD (chronic obstructive pulmonary disease) Dyslipidemia Enlarged prostate without lower urinary tract symptoms (luts) History of esophageal reflux HLD (hyperlipidemia) Lumbar canal stenosis Lumbar disc herniation Osteoporosis Renal cyst Sepsis Smokeless tobacco use Surgical History History of cataract surgery bilateral History of lobectomy of lung right side upper lobe noncancerous Family History Family/Other Diabetes Father Stroke Brother Myocardial infarction Mother , at a young age Cancer Denies family history of Ovarian cancer Prostate cancer Breast cancer Colorectal cancer Social History Smoking Status: Former smoker Tobacco Type: Cigarettes Age Started Using Tobacco: 17; Age Quit Using Tobacco: 57; packs per day: 1; Second Hand Exposure: No; Hx Alcohol Use: Yes Alcohol type: hard liquor Alcohol type Comment: whiskey Hx Substance Use: No Preferred Language: Arabic Communication Ability: Effective Visual Impairment: Partially Limited Hearing Ability: Normal Senior Advisory Required: No Beliefs That Will Affect Care: Cheondoism marital status: Current Living Situation: Alone current occupational status: employed and retired 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 Feels Safe at Home: Yes Childhood Exposure to Second-Hand Smoke: No caffeine: Yes (coffee - 1 cup daily) Dental Care, Regularly: Yes Physical Activity Frequency: Daily Physical Activity Frequency Comment: walking Seatbelt Use: sometimes Sunscreen Use: No Do you think of yourself as: straight/heterosexual Assistive Devices: None Review of Systems Review of Systems: Unobtainable due to cognitive status Physical Exam Constitutional: + ill appearing Eyes: PERRL, conjunctivae normal, anicteric sclerae ENMT: Mouth: + dry oral mucous membranes Neck: trachea midline, no thyromegaly Respiratory: + labored breathing and + tachypneic Cardiovascular: Rate/Rhythm: regular rate and regular rhythm Extremities: no edema Gastrointestinal (Abdomen): Inspection/Auscultation: + hypoactive bowel sounds Percussion/Palpation: abdomen soft; abdomen nontender Neurologic: + obtunded agitated, wearing inflatable mittens Results & Data Vital Signs (Past 12 Hours) Vital Signs Temp Pulse Pulse Resp BP Pulse Ox O2 Del Method 08/03/22 08:00 71 08/03/22 08:00 Nasal Cannula 08/03/22 07:59 73 08/03/22 06:56 36.4 C L 77 20 112/71 99 Nasal Cannula 08/03/22 04:04 36.4 C L 73 14 122/77 98 Nasal Cannula 08/03/22 01:17 73 O2 Flow Rate 08/03/22 08:00 08/03/22 08:00 3 08/03/22 07:59 08/03/22 06:56 3 08/03/22 04:04 3 08/03/22 01:17 Laboratory Results Laboratory Tests 04/18/22 05/17/22 08/01/22 13:00 15:42 01:00 WBC Hgb Hct Plt Count Sodium Potassium Chloride Carbon Dioxide BUN 35 H Creatinine 1.71 H 2.87 H Est GFR (Non-Af Amer) Glucose Calcium Total Bilirubin AST ALT Alkaline Phosphatase Albumin Urine Appearance Ur Specific [place] Urine Protein Urine Blood Urine Nitrite Urine RBC (Auto) 08/01/22 08/02/22 08/02/22 06:13 02:43 06:11 WBC 19.84 H Hgb Hct Plt Count Sodium Potassium Chloride Carbon Dioxide BUN 120 H Creatinine Est GFR (Non-Af Amer) Glucose Calcium Total Bilirubin AST ALT Alkaline Phosphatase Albumin Urine Appearance Cloudy A Ur Specific [place] 1.025 Urine Protein Negative Urine Blood 1+ H Urine Nitrite Negative Urine RBC (Auto) 0-4 08/02/22 08/03/22 08/03/22 09:16 05:40 05:40 WBC 24.00 H Hgb 10.6 L Hct 33.2 L Plt Count 279 Sodium 141 Potassium 4.8 Chloride 104 Carbon Dioxide 20 L BUN 144 H D 170 H D Creatinine 3.45 H D 3.65 H Est GFR (Non-Af Amer) 14.8 Glucose 148 H Calcium 8.2 L Total Bilirubin 1.3 H AST 43 H ALT 88 H Alkaline Phosphatase 61 Albumin 3.4 Urine Appearance Ur Specific [place] Urine Protein Urine Blood Urine Nitrite Urine RBC (Auto) Laboratory Tests 08/01/22 08/01/22 08/01/22 01:00 06:13 15:41 Troponin I High Sens 304.7 H* 456.9 H* D 792.9 H* D 08/01/22 08/02/22 23:55 09:16 Troponin I High Sens 1251.8 H* D 1709.1 H* D Diagnostic Findings 08/01/22 CHEST CTA: 1. Pulmonary emboli of the left lower lobe segmental arteries. 2. No consolidation. 3. Small bilateral pleural effusions. 08/01/[address] WITHOUT CONTRAST: 1. Prostamegaly with urinary bladder wall thickening suggestive of chronic bladder outlet obstruction. Correlate with urinalysis to exclude cystitis. 2. No urolith or hydronephrosis. 3. Cardiomegaly with fluid overload manifested by trace pericardial and pleural effusions along with body wall edema and small volume of abdominal pelvic ascites. 4. No bowel obstruction or bowel wall thickening. 5. Colonic diverticulosis. 08/01/22 CXR: 1. Cardiomegaly and emphysema with no acute cardiopulmonary abnormality identified. 2. There is herniation of the right lung through a right sided rib defect. 08/02/22 Echocardiogram: LVEF 15-20%, Severe global hypokinesis of LV, RV mod-severely dilated, mod- severe MR PG Care Time/CCT Total # of Minutes Spent Total Time Spent with Patient: Total time spent is greater than 50% in coordination of care (as documented) at patient's floor/unit and/or counseling patient: Coding Level of Care Code 70300 IN/OBS CONSULT LVL 5,80M Diagnoses Acute kidney injury N17.9 CKD stage G3b/A1, GFR 30-44 and albumin creatinine ratio <30 mg/g N18.32 Ischemic cardiomyopathy I25.5
[2022-08-03] MEDS: HEPARIN SODIUM/DEXTROSE 25,000 UNITS/500 ML BAG IV SCH (13:02)
[2022-08-03 13:35] LABS: HCO3 ABG 18 mmol/L (19-24); Oxygen Saturation ABG 99.3 % (90-95); PCO2 ABG 40 mmHg (35-46); PO2 ABG 126 mmHg (80-95); pH ABG 7.27 (7.35-7.45)
[2022-08-03 13:38] LABS: Allen Test Pos (Pos)
[2022-08-03] MEDS ORDERED: NORMOSOL-R 1,000 ML IV SCH (13:45)
[2022-08-04] MEDS: METOPROLOL TARTRATE 1 MG/ML VIAL IV SCH ×6 (00:02→20:19)
[2022-08-04] MEDS: PIPERACILLIN/TAZOBACTAM 3.375 GM in DEXTROSE 5% 100 ML IV SCH ×3 (02:05→17:05)
[2022-08-04] MEDS ORDERED: NORMOSOL-R 1,000 ML IV SCH (02:45)
[2022-08-04 06:08] LABS: INR 1.8 (0.9-1.1); Partial Thromboplastin Ratio 1.3; Partial Thromboplastin Time 34.9 Seconds (21.0-31.0); Prothrombin Time 18.9 Seconds (9.0-12.0)
[2022-08-04 06:11] LABS: Hematocrit (blood only) 28.3 % (42.0-52.0); Hemoglobin 8.9 g/dl (14.0-18.0); Mean Corpuscular Hemoglobin 28.3 pg (25.0-34.0); Mean Corpuscular Hgb Conc 31.4 g/dL (32.0-36.0); Mean Corpuscular Volume 89.8 fL (80.0-100.0); Mean Platelet Volume 11.9 fL (9.4-12.4); Nucleated RBC # (auto) 0.23 K/uL (0-0.12); Platelet Count 249 K/uL (130-400); RDW Coefficient of Variation 15.7 % (11.5-14.5); RDW Standard Deviation 50.6 fL (36.4-46.3); Red Blood Count 3.15 M/uL (4.70-6.10); White Blood Count 22.72 K/ul (4.8-10.8)
[2022-08-04 06:32] LABS: Basophils # (auto) 0.03 K/uL (0-0.2); Basophils % (auto) 0.1 %; Echinocytes 2+; Immature Granulocytes # (auto) 0.45 K/uL (0.01-0.20); Lymphocytes # (auto) 0.32 K/uL (1.2-3.4); Lymphocytes % (auto) 1.4 %; Monocytes # (auto) 1.34 K/uL (0.11-0.59); Monocytes % (auto) 5.9 %; Neutrophils # (auto) 20.58 K/uL (1.40-6.50); Neutrophils % (auto) 90.6 %; Polychromasia 1+
[2022-08-04 06:38] LABS: Fibrinogen 197 mg/dl (184-400)
[2022-08-04 06:49] LABS: Albumin Globulin Ratio 1.6 (0.9-2); Albumin Level 3.1 gm/dl (3.4-5.0); BUN Creatinine Ratio 56.2 (10-20); Bilirubin,Total 1.2 mg/dl (0.2-1.0); C Reactive Protein 2.01 mg/dl (0-0.5); Calcium 7.7 mg/dl (8.6-10.3); Creatinine Clr Calc Pharmacy 21.8 ml/min; Est GFR (African American) 18.8 ml/min; Est GFR (Non-African American) 16.2 ml/min; Potassium 5.3 mmol/L (3.5-5.1); Total Protein 5.1 gm/dl (6.0-8.3)
[2022-08-04] MEDS: ASPIRIN 81 MG ECTAB PO SCH (08:23)
[2022-08-04] MEDS: FAMOTIDINE 20 MG in SYRINGE 3 ML IV SCH ×2 (08:25→20:20)
[2022-08-04] MEDS: UMECLIDINIUM/VILANTEROL 62.5/25MCG 7 PUFFS/INHALER INH SCH (08:32)
--- NOTE | 2022-08-04 08:38 | Nephrology Progress Note ---
Date of Service August 04, 2022 Assessment & Plan (1) Acute kidney injury: Plan: * VICTORIANO likely due to combination of contrast induced nephropathy, dehydration and reduced LVEF related to IMC/PE * 08/02/22 Urine microscopy was negative for ATN casts * 08/01/[address] was negative for obstruction/hydronephrosis * Rajput catheter has been placed. 1800 cc UO last shift * Continue gentle hydration with 0.45 NS w/ 75 mEq NaHCO3 at 80 cc/hr * Monitor PRP, UO * Discussed medical presentation and POC w/ patient's son Rodri and Dr. Finch yesterday. Rodri understands the seriousness of his father's illness. 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 Rodri indicated that his father would not want escalation of care. He would not want dialysis. He is agreeable to conservative medical management and transition to comfort measures if his father's condition worsens (2) CKD stage G3b/A1, GFR 30-44 and albumin creatinine ratio <30 mg/g: Plan: * Baseline Cr 1.7 (3) Ischemic cardiomyopathy: Plan: * Marked elevation of troponin * 08/02/22 echocardiogram now shows worsening LVEF of 15-20% Admission and Anticipated Discharge Date Admission Date: August 01, 2022 Subjective Mr. Robb was evaluated in his hospital room this morning. He was lethargic and would not follow commands or answer questions Review of Systems Review of Systems: Unobtainable due to cognitive status Physical Exam Constitutional: + ill appearing Eyes: PERRL, conjunctivae normal, anicteric sclerae ENMT: Mouth: + dry oral mucous membranes Neck: trachea midline, no thyromegaly Respiratory: + labored breathing and + tachypneic Cardiovascular: Rate/Rhythm: regular rate and regular rhythm Extremities: no edema Gastrointestinal (Abdomen): Inspection/Auscultation: + hypoactive bowel sounds Percussion/Palpation: abdomen soft; abdomen nontender Neurologic: + obtunded Results & Data Vital Signs (Past 12 Hours) Vital Signs Temp Pulse Pulse Pulse Resp BP BP 08/04/22 08:18 75 08/04/22 08:01 18 08/04/22 07:45 35.9 C L 74 22 114/82 08/04/22 04:35 76 128/85 08/04/22 03:09 36.5 C 71 21 113/80 08/04/22 00:02 72 121/77 08/03/22 23:09 73 08/03/22 22:54 36.3 C L 73 17 117/77 08/03/22 20:59 74 112/71 Pulse Ox O2 Del Method O2 Flow Rate 08/04/22 08:18 08/04/22 08:01 98 Nasal Cannula 4 08/04/22 07:45 97 Nasal Cannula 4 08/04/22 04:35 08/04/22 03:09 97 Nasal Cannula 4 08/04/22 00:02 08/03/22 23:09 08/03/22 22:54 100 Nasal Cannula 4 08/03/22 20:59 Laboratory Results Laboratory Tests 08/02/22 08/02/22 08/04/22 06:11 09:16 05:41 WBC 22.72 H Hgb 8.9 L Hct 28.3 L Plt Count 249 Sodium Potassium Chloride Carbon Dioxide BUN Creatinine Troponin I High Sens 1709.1 H* D Albumin Urine pH 5.0 Ur Specific [place] 1.025 Urine Protein Negative Urine Glucose (UA) Negative Urine Blood 1+ H Urine WBC (Auto) >30 H U Hyaline Cast (Auto) 1-5 08/04/22 05:41 WBC Hgb Hct Plt Count Sodium 145 Potassium 5.3 H Chloride 111 H Carbon Dioxide 19 L BUN 190 H D Creatinine 3.38 H Troponin I High Sens Albumin 3.1 L Urine pH Ur Specific [place] Urine Protein Urine Glucose (UA) Urine Blood Urine WBC (Auto) U Hyaline Cast (Auto) PG Care Time/CCT Total # of Minutes Spent Total Time Spent with Patient: Total time spent is greater than 50% in coordination of care (as documented) at patient's floor/unit and/or counseling patient: Coding Level of Care Code 70201 SUB INP/OBS CARE 3/50MIN Diagnoses Acute kidney injury N17.9 CKD stage G3b/A1, GFR 30-44 and albumin creatinine ratio <30 mg/g N18.32 Ischemic cardiomyopathy I25.5
[2022-08-04] MEDS ORDERED: FLUCONAZOLE 100 MG/50 ML BAG IV SCH (09:00)
--- NOTE | 2022-08-04 10:34 | Oncology Consultation ---
Date of Consultation August 04, 2022 Assessment & Plan (1) Sepsis: (2) Anemia: (3) Coagulopathy: (4) Pulmonary embolism: Plan 82-year-old gentleman admitted for sepsis likely due to complicated UTI. Of note, patient was recently diagnosed with PE for which he is currently on hepari n. Hematology was consulted for possible DIC. -Based on review of his labs as well as peripheral smear, he does not appear to have DIC clinically. He has a normal platelet count, normal fibrinogen level and peripheral smear review did not show any evidence to suggest DIC such as microangiopathic hemolytic anemia or schistocytes. - Elevated reticulocyte count and sudden drop in hemoglobin from 13-8, elevated reticulocyte count in the setting of heparin use is concerning for bleeding. Would recommend assessing stool for occult blood. Also recommend repeating CT abdomen and pelvis to rule out bleeding. If evidence of bleeding is noted or hemoglobin continues to decline, would need to discontinue heparin. Suspect that his elevated PT/INR may be due to vitamin K deficiency. Would not recommend supplementing vitamin K at this time given high risk for clotting in the setting of recent PE. -Given overall poor clinical picture, would be reasonable to discuss goals of care with patient's family Thank you for this consult. Please feel free to call if you have any further questions History of Present Illness Reason for Consultation: Sepsis, possible DIC Attending Physician: Uvaldo Finch History of Present Illness 82-year-old male with history of ischemic cardiomyopathy with heart failure with reduced EF, EF = 25 to 29%, CAD, hypertension, COPD, CKD, GERD who Was admitted for respiratory distress. I was unable to obtain history from patient due to altered mental status. However, review of chart indicates that he was admitted to [facility] from 07/24/2022 to 07/31/2022 with sepsis secondary to complicated UTI. During admission, he was diagnosed with acute pulmonary embolism for which he was placed on Eliquis. Patient was then discharged to [facility]. He was brought to the ER on 08/01/2022 due to respiratory distress. Labs obtained on admission revealed leukocytosis with white cell count of greater than 20,000, hemoglobin of 13.6. Work-up for infection including blood cultures have been negative so far. Urine culture revealed Gudelia albicans. CT abdomen and pelvis on admission revealed prostatomegaly with urinary bladder wall thickening suggestive of chronic bladder outlet obstruction, cardiomegaly with fluid overload. CTA chest revealed pulmonary emboli in the left lower lobe. Hematology was consulted due to concern for DIC Allergies Allergy/AdvReac Type Severity Reaction Status Date / Time atorvastatin Allergy Unknown Unverified 08/01/22 02:51 carvedilol Allergy arthralgia Unverified 08/01/22 02:51 gabapentin Allergy Unknown Unverified 08/01/22 02:51 morphine Allergy Unknown Verified 08/01/22 02:51 rofecoxib Allergy Unknown Verified 08/01/22 02:51 Home Medications Medication Instructions Recorded Confirmed Type aspirin 81 mg tablet,delayed 81 mg PO DAILY #90 tabs 11/05/18 08/01/22 Rx release metoprolol succinate 50 mg capsule 50 mg PO DAILY #90 ea 05/16/22 08/01/22 Rx sprinkle, ext. release 24 hr albuterol sulfate 90 mcg/actuation 2 puff inhalation Q4 PRN Wheezing 08/01/22 08/01/22 History aerosol inhaler apixaban 5 mg tablet 5 mg PO Q12 start 08/03/22 08/01/22 08/01/22 History apixaban 5 mg tablet 10 mg PO Q12 08/01/22 08/01/22 History colchicine 0.6 mg tablet (Colcrys) 0.3 mg PO DAILY 08/01/22 08/01/22 History docusate sodium 100 mg capsule 100 mg PO BID 08/01/22 08/01/22 History famotidine 20 mg tablet 20 mg PO Q OTHER DAY 08/01/22 08/01/22 History fluticasone fur. 100 mcg-umeclid 1 inh inhalation DAILY 08/01/22 08/01/22 History 62.5 mcg-vilant 25 mcg inhalat.powder (Trelegy Ellipta) melatonin 3 mg tablet 6 mg PO HS PRN Insomnia 08/01/22 08/01/22 History ondansetron 4 mg disintegrating 4 mg PO Q4 PRN nausea or vomiting 08/01/22 08/01/22 History tablet quetiapine 25 mg tablet (Seroquel) 25 mg PO HS PRN Anxiety 08/01/22 08/01/22 History sodium zirconium cyclosilicate 5 5 g PO QDL 08/01/22 08/01/22 History gram oral powder packet Patient History Medical History Atherosclerotic heart disease Benign essential hypertension Chronic kidney disease, stage 3 COPD (chronic obstructive pulmonary disease) Dyslipidemia Enlarged prostate without lower urinary tract symptoms (luts) History of esophageal reflux HLD (hyperlipidemia) Lumbar canal stenosis Lumbar disc herniation Osteoporosis Renal cyst Sepsis Smokeless tobacco use Surgical History History of cataract surgery bilateral History of lobectomy of lung right side upper lobe noncancerous Family History Family/Other Diabetes Father Stroke Brother Myocardial infarction Mother , at a young age Cancer Denies family history of Ovarian cancer Prostate cancer Breast cancer Colorectal cancer Social History Smoking Status: Former smoker Tobacco Type: Cigarettes Age Started Using Tobacco: 17; Age Quit Using Tobacco: 57; packs per day: 1; Second Hand Exposure: No; Hx Alcohol Use: Yes Alcohol type: hard liquor Alcohol type Comment: whiskey Hx Substance Use: No Preferred Language: Grenadian Communication Ability: Effective Visual Impairment: Partially Limited Hearing Ability: Normal Server Support Technician Required: No Beliefs That Will Affect Care: Jain marital status: Current Living Situation: Alone current occupational status: employed and retired 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 Feels Safe at Home: Yes Childhood Exposure to Second-Hand Smoke: No caffeine: Yes (coffee - 1 cup daily) Dental Care, Regularly: Yes Physical Activity Frequency: Daily Physical Activity Frequency Comment: walking Seatbelt Use: sometimes Sunscreen Use: No Do you think of yourself as: straight/heterosexual Assistive Devices: None Review of Systems Review of Systems: Unobtainable due to cognitive status and Unobtainable due to reduced consciousness Results & Data Vital Signs (Past 12 Hours) Vital Signs Temp Pulse Pulse Pulse Resp BP BP 08/04/22 09:00 36.1 C L 08/04/22 08:18 75 08/04/22 08:01 18 08/04/22 07:45 35.9 C L 74 22 114/82 08/04/22 04:35 76 128/85 08/04/22 03:09 36.5 C 71 21 113/80 08/04/22 00:02 72 121/77 08/03/22 23:09 73 08/03/22 22:54 36.3 C L 73 17 117/77 Pulse Ox O2 Del Method O2 Flow Rate 08/04/22 09:00 08/04/22 08:18 08/04/22 08:01 98 Nasal Cannula 4 08/04/22 07:45 97 Nasal Cannula 4 08/04/22 04:35 08/04/22 03:09 97 Nasal Cannula 4 08/04/22 00:02 08/03/22 23:09 08/03/22 22:54 100 Nasal Cannula 4
[2022-08-04] MEDS ORDERED: HEPARIN SODIUM/DEXTROSE 25,000 UNITS/500 ML BAG IV SCH (11:00)
[2022-08-04 11:40] LABS: Ferritin 57.8 ng/ml (8-388)
[2022-08-04] MEDS: Heparin IV Adult Wt-Based Low-Dose *NO* Bolus Protocol IV SCH ×2 (11:45→11:51)
[2022-08-04] MEDS ORDERED: SODIUM BICARBONATE 8.4% 75 MEQ in SODIUM CHLORIDE 0.45 % 1,000 ML IV SCH (12:45)
[2022-08-04 13:27] LABS: Reticulocyte % 4.7 % (0.5-2.0); Reticulocytes # 0.15 10^6/uL (0.02-0.10)
[2022-08-04 20:54] LABS: Partial Thromboplastin Ratio 4.1
[2022-08-04 20:58] LABS: Partial Thromboplastin Time 112.5 Seconds (21.0-31.0)
--- NOTE | 2022-08-04 21:53 | Hospitalist Progress Note ---
Date of Service August 04, 2022 Assessment & Plan (1) Sepsis: Plan: 82 yo male who waas recently hospitalized at [facility] for urosepsis. Given his lack of response, will hold further diuretics. Will give IVF, as lactic acid was elevated. will add dapto to his zosyn as well as fluconazole. There is a concern patient may be going into DIC Fibrinogen is normal, will recheck tomorrow. awaiting fibrinogen will consult nephro, patient had ATN at [facility]. Patient's mentation over at [facility] improved, howver, patient would remain pleasantly confused as he would talk about fishing. Patient's creatinine at discharge form [facility] was 2.5 updated family. will see if patient improves over next 48 hours. Son states patient prior to this hospital stay was not interested in dialysis (2) SOB (shortness of breath): Plan: Acute on chronic respiratory failure high risk Patient is delirious and not cooperating with treatment Chest x-ray is within normal limits. Pneumonia was ruled out for bronchitis likely Riddhi on antibiotic therapy Zosyn Aspiration precautions Scheduled bronchodilators intravenous steroids and mucolytic's continue long- acting inhalers for COPD acute delirium from illness high risk Patient with metabolic encephalopathy likely from respiratory failure and bronchitis present on admission. (Also some concern for UA abnormal urine analysis pending culture) Continues on Zosyn therapy. Requirements of Haldol/Ativan and physical restraints to prevent injury - chronic unstable PE poa, transition to heparin for nstemi and PE, now with persistently prolongued PTT currently holding heparin. (3) PAF (paroxysmal atrial fibrillation): Plan: Chronic stable rate controlled. Patient anticoagulated on apixaban for recent diagnosis of acute PE overnight had decompensation and concern for med recc with omission of apixiban, started on heparin but markedly prolongued supratherapuetic PTT, now on hold Continue metoprolol for rate control (4) Chronic systolic (congestive) heart failure: Plan: Chronic systolic heart failure stable at present time EF 25% last BNP elevated moderate risk due to decreased ejection fraction Lasix 40 mg IV daily (held on 08/03) Comments of heart failure and imaging really are suggestive of fluid overload likely anasarca which could be contributed to by the moderate protein malnutrition Acute elevated troponin concern for NSTEMI versus demand ischemia from illness, patient is on metoprolol, low-dose aspirin, currently not on statin repeat echocardiogram confirms CSHF EF 20%, failed Entresto in the past. Chronic hypertension stable treated with metoprolol (5) Chronic kidney disease, stage 3: Plan: Chronic and disease seems to be stable Lasix 40 mg IV daily Admission and Anticipated Discharge Date Admission Date: August 01, 2022 Results & Data Results & Data Vital Signs (Past 12 Hours) Vital Signs Temp Pulse Pulse Resp BP BP Pulse Ox 08/04/22 20:19 76 118/70 08/04/22 19:22 36.3 C L 70 22 133/68 94 08/04/22 16:52 36.8 C 66 24 124/66 97 08/04/22 16:01 71 08/04/22 11:51 74 08/04/22 11:37 36.4 C L 71 20 119/76 96 O2 Del Method O2 Flow Rate 08/04/22 20:19 08/04/22 19:22 Nasal Cannula 4 08/04/22 16:52 Room Air 08/04/22 16:01 08/04/22 11:51 08/04/22 11:37 Nasal Cannula PG Care Time/CCT Total # of Minutes Spent Total Time Spent with Patient: Total time spent is greater than 50% in coordination of care (as documented) at patient's floor/unit and/or counseling patient: Coding Diagnoses Sepsis A41.9 SOB (shortness of breath) R06.02 PAF (paroxysmal atrial fibrillation) I48.0 Chronic systolic (congestive) heart failure I50.22 Chronic kidney disease, stage 3 N18.3
--- NOTE | 2022-08-05 00:45 | Death Pronouncement Note ---
Date of Service August 05, 2022 Pronouncement Note Admission Date Admission Date: August 01, 2022 Contributing Factors (1) Sepsis: (2) SOB (shortness of breath): (3) PAF (paroxysmal atrial fibrillation): (4) Chronic systolic (congestive) heart failure: (5) Chronic kidney disease, stage 3: Additional Data Attending physician: Uvaldo Finch Supervising Physician Co-Signing Physician Notes At approximately 11:50 PM on 324, was notified by nursing that patient went asystolic 2 minutes prior. Proceeded to patient's room to pronounce. Was informed by nursing that son Sheila) has been notified. Nurse also provided strip showing asystole at 23:48. In the room, patient's neighbor/niece and her were at bedside. They preferred to remain in the room for the physical exam. On exam, no spontaneous movements were present. There was no response to verbal or tactile stimuli. Patient's pupils were dilated and fixed. There were no breath sounds appreciated in any lung field. Unable to palpate carotid pulse bilaterally. Unable to palpate radial pulses bilaterally. No corneal scratch reflex. Time of upon completion of exam was 12:30 AM on 08/05/2022. Resident Activity Tracking Resident Involvement: Resident Care Provided Care Provided: Adult Hospital Medicine
--- NOTE | 2022-08-05 11:42 | Discharge Summary ---
Date of Service August 04, 2022 Admission HPI Per Admitting Provider Celio Robb is an 82-year-old male with history of ischemic cardiomyopathy with heart failure with reduced EF, EF = 25 to 29%, CAD, hypertension, COPD, CKD, GERD presenting from rehab with report of respiratory distress. Patient was recently admitted to [facility] in [place] from 07/24/2022 - 07/31/2022 with severe sepsis and multisystem organ failure. Patient was found to have a complicated UTI as well as VICTORIANO, increased LFTs and demand ischemia. He was also found to have an acute pulmonary embolism during that hospital stay. He was treated with IV antibioticsvancomycin and Zosyn as well as Eliquis. Patient was ultimately discharged to [facility] on 07/31/2022. He was sent to the ER shortly after with report of respiratory distress. Per chart review, at 23:40 the patient developed respiratory distress requiring 15 L of oxygen. In the ER, he is hypothermic with temperature of 35.9, heart rate and blood pressure stable, respiratory status has been stable with no further episodes of distress, adequate oxygenation on room air. Patient offers no complaints aside from feeling cold. He specifically denies chest pain, palpitations, cough, shortness of breath. Denies abdominal pain, nausea, vomiting, diarrhea. ER course: Solu-Medrol 125 mg IV Albuterol 3 mL neb Principal Diagnosis sepsis Discharge Exam Patient is resting comfortably but is lethargic. Responsive to painful stimuli. lungs appear clear heart rate is not tachycardic Discharge Data Allergies Allergy/AdvReac Type Severity Reaction Status Date / Time atorvastatin Allergy Unknown Unverified 08/01/22 02:51 carvedilol Allergy arthralgia Unverified 08/01/22 02:51 gabapentin Allergy Unknown Unverified 08/01/22 02:51 morphine Allergy Unknown Verified 08/01/22 02:51 rofecoxib Allergy Unknown Verified 08/01/22 02:51 Consultations 08/01/22 01:58 ED Decision to Admit Stat 08/02/22 07:40 Consult Cardiology Routine 08/03/22 11:18 Consult Nephrology Routine 08/03/22 11:32 HIM [Consult Health Information Management] Stat 08/04/22 10:18 Consult Hematology Routine Ordered Studies 08/01/22 03:59 CT abd pelvis wo con Stat 08/01/22 23:18 CT angio chest PE protocol Stat Hospital Course (1) Sepsis: 82 yo male who waas recently hospitalized at [facility] for urosepsis. Complicated UTI present on admission Patient's prognosis was guarded and very poor during this admission. THis was converyed toward's his son earlier the day prior given his recent hospitalization and bounce back within 24 hours. Patient had a lack of improve from his mental status, despite broad spectrum antibiotics and fluconazole. Patient was also at the point where dialysis was a consideration given how his kidney function had worsened. Son states that patient's wishes were not to be on dialysis. Given his multiple comorbidities, acute pulmonary emboli, urinaty tract infection, worsening renal function, patient on 08/04/22, by nursing at 23:48. (2) SOB (shortness of breath): Acute on chronic respiratory failure high risk Acute pulmonary emboli POA Patient is delirious and not cooperating with treatment Chest x-ray is within normal limits. Pneumonia was ruled out for bronchitis likely Riddhi on antibiotic therapy Zosyn Aspiration precautions Scheduled bronchodilators intravenous steroids and mucolytic's continue long- acting inhalers for COPD acute delirium from illness high risk Patient with metabolic encephalopathy likely from respiratory failure and bronchitis present on admission. (Also some concern for UA abnormal urine analysis pending culture) was on Zosyn/vanco fluconazole therapy. Requirements of Haldol/Ativan and physical restraints to prevent injury - chronic unstable PE poa, initially on heparin for nstemi and PE (3) PAF (paroxysmal atrial fibrillation): Chronic stable rate controlled. Patient anticoagulated on apixaban for recent diagnosis of acute PE overnight had decompensation and concern for med recc with omission of apixib an, started on heparin but markedly prolongued supratherapuetic PTT, now on hold Continue metoprolol for rate control (4) Chronic systolic (congestive) heart failure: Chronic systolic heart failure stable at present time EF 25% last BNP elevated moderate risk due to decreased ejection fraction Lasix 40 mg IV daily (held on 08/03) Comments of heart failure and imaging really are suggestive of fluid overload likely anasarca which could be contributed to by the moderate protein malnutrition Acute elevated troponin concern for NSTEMI versus demand ischemia from illness, patient is on metoprolol, low-dose aspirin, currently not on statin repeat echocardiogram confirms CSHF EF 20%, failed Entresto in the past. Chronic hypertension stable treated with metoprolol (5) Chronic kidney disease, stage 3: Chronic and disease seems to be stable Total Time Total Time Spent Total Time Spent (In Minutes): 50 Discharge Plan Discharge Items Patient Disposition: Other Date/Time: 08/05/22 00:30 Coding Level of Care Code 36087 INP/OBS DISCH >30 MIN Diagnoses Sepsis A41.9 SOB (shortness of breath) R06.02 PAF (paroxysmal atrial fibrillation) I48.0 Chronic systolic (congestive) heart failure I50.22 Chronic kidney disease, stage 3 N18.3
== END 2022-08-05 02:30 | disposition expired | DRG 871 ==
LOC: ED 00:43 → SUATTDRO 03:14 → EDINP 03:14 → 2N 16:55 → 2E 08-02 13:06